=== PATIENT | male | born 1975 | race Caucasian/White ===

== ENCOUNTER → 2019-07-30 10:12 | Outpatient (CLI) | payer MEDICARE, OTHER, SELFPAY | PROVIDERS: PCP Family Medicine; Visit Provider Family Medicine | DX: M81.0 Age-related osteoporosis without current pathological fracture (principal) | CPT/HCPCS: 77080 ==

== ENCOUNTER 2021-04-13 13:18 | Inpatient (IN) | payer MEDICARE, OTHER, MEDICAID, SELFPAY ==
[2021-04-13] VITALS (20 sets, daily range): BP systolic 108–140; BP diastolic 71–88; PULSE 67–90; RESP 12–24; TEMP 36.2–36.7; O2SAT 91–100
[2021-04-13 14:04] LABS: Add Manual Diff / Slide Review NO; Basophils Absolute Auto 0 /uL (0-100); Basophils Percent Auto 0.2 % (0-2); Eosinophils Absolute Auto 0 /uL (0-450); Eosinophils Percent Auto 0.4 % (2-4); Hematocrit 36.5 % (41-53); Hemoglobin 13.1 g/dL (13.5-17.5); Lymphocytes Absolute Auto 1300 /uL (1100-4500); Lymphocytes Percent Auto 18.7 % (25-40); Mean Corpuscular HGB Conc 35.8 % (30-36); Mean Corpuscular Hemoglobin 29.9 PG (26-34); Mean Corpuscular Volume 83.5 fL (80-100); Monocytes Absolute Auto 800 /uL (0-900); Monocytes Percent Auto 12.6 % (3-14); Neutrophils Absolute Auto 4600 /uL (1500-7000); Neutrophils Percent Auto 68.1 % (50-75); Platelet Count 230 X10^3/uL (150-400); Red Blood Cell Count 4.37 X10^6/uL (4.5-5.9); White Blood Cell Count 6.7 X10^3/uL (4.5-11.0)
[2021-04-13 14:11] LABS: HEMOLYSIS < 15 (0-50); Potassium 3.5 mmol/L (3.4-5.1)
[2021-04-13 14:12] LABS: Alanine Aminotransferase 20 IU/L (<50); Albumin 4.4 g/dL (3.5-5.0); Albumin Globulin Ratio 1.5 (1.0-2.8); Alkaline Phosphatase 74 U/L (38-126); Aspartate Aminotransferase 30 IU/L (17-59); BUN Creatinine Ratio 23.4 (6-22); Bilirubin Total 1.2 mg/dL (0.2-1.3); Blood Urea Nitrogen 11 mg/dL (9-20); Calcium 9.2 mg/dL (8.4-10.2); Carbon Dioxide 26 mmol/L (22-32); Chloride 82 mmol/L (98-107); Estimated Glomerular Filt Rate > 60.0 mL/min (>60); Globulin 2.9 g/dL (1.7-4.1); Glucose 101 mg/dL (70-100); Lipase 57 U/L (23-300); Total Protein 7.3 g/dL (6.3-8.2)
[2021-04-13 14:28] LABS: Sodium 116 mmol/L (137-145)
[2021-04-13 14:46] LABS: Bacteria Urine None Seen
[2021-04-13 15:32] LABS: Amorphous Sediment Urine 1+; Culture Indicated Urine Cult Not Indicated; RBC Urine 5-10/HPF (0-5/HPF); WBC Urine 0-1/HPF (0-5/HPF)
--- NOTE | 2021-04-13 15:36 | ED.RECABL ---
HPI - Recheck/Abnormal Lab/Rx General Chief Complaint: Recheck/Abnormal Lab/Rx Stated Complaint: sodium level of 117 this AM Time Seen by Provider: 04/13/21 14:18 Source: patient Mode of arrival: Ambulatory Limitations: no limitations History of Present Illness HPI narrative: This is a 46-year-old male who comes emergency department with some dry heaves and nausea and vomiting starting Saturday for 3 days. Patient was noted to have decreased appetite. He was able to eat today. Patient has not had any pain but he has some developmental delay and does not typically perceive or express pain. Patient has had normal bowel movements, no black or bloody stools, no diarrhea. He has not had any shortness of breath he has not seemed to be having any chest pain or pressure. Patient has had not any decrease for changes in urine output, no dysuria, urgency or frequency. Patient himself indicates that he does feel a little bit different but his mother states he has been acting normally and moving normally. He does have a history of seizure disorder his last seizure was 25 years ago he does follow with Neurology in [place] and last saw Dr. Clay, he takes lamotrigine 200 mg in the morning and has been on this dose for approximately 4-5 years. He takes vitamin-D daily, calcium and multivitamin no other additional medications. He had a deviated septum surgery remotely. No allergies to medications. No tobacco, alcohol or illicit. He lives with his family. Related Data Home Medications Medication Instructions Recorded Confirmed alendronate 70 mg tablet (Fosamax) QWEEK #0 11/07/16 calcium citrate 200 mg BID #0 11/07/16 calcium-vitamin D3 3.125 mcg (125 unit) tablet multivitamin (Multiple Vitamins) QDAY #0 11/07/16 Previous Rx's Medication Instructions Recorded lamotrigine 150 mg tablet 150 tab OR BID #180 tab 11/06/17 (Lamictal) Allergies Allergy/AdvReac Type Severity Reaction Status Date / Time No Known Drug Allergies Allergy Verified 04/13/21 13:35 Review of Systems Review of Systems ROS Unobtainable: All systems reviewed & are unremarkable except as noted in HPI and below Patient History Social History Smoking Status: Never smoker Smoking Status: Never smoker Substance Use Type: does not use Exam Narrative Exam Narrative: GEN: well nourished, well appearing male, alert and oriented, patient appears to be in mild distress. HEENT: Atraumatic, pupils are equal round reactive to light, extraocular movements are intact, nares are clear. Mildly dry mucous membranes. HEART: Regular rate and rhythm without murmur, clicks, rubs. Pulses are equal in upper and lower extremities LUNGS:Lungs clear to auscultation, no wheezes, rales, crackles, chest moves symmetrically ABD:bowel sounds normal, soft, non-tender, no guarding, rebound, rigidity, no masses noted, no hepatosplenomegaly :No CVA tenderness MSCL: Non-tender, full range of motion, 5/5 muscle strength. NEURO:CN 2-12 intact, sensation normal SKIN: Rash or skin changes noted. Initial Vital Signs Initial Vital Signs: Vital Signs Temperature 98.0 F 04/13/21 13:22 Pulse Rate 88 04/13/21 13:22 Respiratory Rate 18 04/13/21 13:22 Blood Pressure 115/71 04/13/21 13:22 Pulse Oximetry 96 04/13/21 13:22 Course Orders Ordered: ED Orders 04/13/21 13:30 EKG-12 Lead Stat 04/13/21 13:45 Complete Blood Count AUTO DIFF Stat Comprehensive Metabolic Panel Stat Lipase Stat Thyroid Stimulating Hormone Stat 04/13/21 14:35 Osmolality Urine Stat Sodium Urine Random Stat Urine Microscopic Stat 04/13/21 15:58 CT kidney ureter bladder (KUB) Stat 04/13/21 16:17 Lamotrigine Lamictal Stat Osmolality, Serum Stat 04/13/21 16:35 COVID19 - ADMIT (BORDER MEASURER swab/PCR) Stat 04/13/21 18:57 Electrolytes Stat Discontinued Medications Sodium Chloride (Normal Saline 0.9%) 1,000 mls @ 500 mls/hr IV BOLUS ONE Stop: 04/13/21 17:57 Last Infusion: 04/13/21 19:12 Dose: 0 mls/hr Documented by: CTR.[email or web address] Admin: 04/13/21 16:25 Dose: 500 mls/hr Documented by: CTR.[email or web address] Consultations Consultation #1: Dr. Pantoja, accepts for admission. Awaiting ICU bed here. Plan of 100 mL of 3% saline is patient's repeat lytes are still below 120. Vital Signs Vital signs: Vital Signs - 8 hr 04/13/21 13:22 04/13/21 15:10 Temperature 98.0 F Pulse Rate 88 81 Respiratory Rate 18 18 Blood Pressure 115/71 115/72 Pulse Oximetry 96 100 MDM - Recheck/Abnormal Lab/Rx Lab Data Result diagrams: 04/13/21 13:45 04/13/21 19:06 Labs: Lab Results 04/13/21 04/13/21 04/13/21 Range/Units 13:45 13:45 13:45 WBC 6.7 (4.5-11.0) X10^3/uL RBC 4.37 L (4.5-5.9) X10^6/uL Hgb 13.1 L (13.5-17.5) g/dL Hct 36.5 L (41-53) % MCV 83.5 (80-100) fL MCH 29.9 (26-34) PG MCHC 35.8 (30-36) % RDW 13.0 (11.6-14.8) % Plt Count 230 (150-400) X10^3/uL Neut % (Auto) 68.1 (50-75) % Lymph % (Auto) 18.7 L (25-40) % [place] % (Auto) 12.6 (3-14) % Eos % (Auto) 0.4 L (2-4) % Baso % (Auto) 0.2 (0-2) % Neut # (Auto) 4600 (3242-1763) /uL Lymph # (Auto) 1300 (2853-1847) /uL [place] # (Auto) 800 (0-900) /uL Eos # (Auto) 0 (0-450) /uL Baso # (Auto) 0 (0-100) /uL Sodium 116 L* (137-145) mmol/L Potassium 3.5 (3.4-5.1) mmol/L Chloride 82 L (98-107) mmol/L Carbon Dioxide 26 (22-32) mmol/L BUN 11 (9-20) mg/dL Creatinine 0.47 L (0.66-1.25) mg/dL Estimated GFR > 60.0 (>60) mL/min BUN/Creatinine Ratio 23.4 H (6-22) Glucose 101 H (70-100) mg/dL Calcium 9.2 (8.4-10.2) mg/dL Total Bilirubin 1.2 (0.2-1.3) mg/dL AST 30 (17-59) IU/L ALT 20 (<50) IU/L Alkaline Phosphatase 74 (38-126) U/L Total Protein 7.3 (6.3-8.2) g/dL Albumin 4.4 (3.5-5.0) g/dL Globulin 2.9 (1.7-4.1) g/dL Albumin/Globulin Ratio 1.5 (1.0-2.8) Lipase 57 (23-300) U/L TSH 1.12 (0.47-4.68) uIU/mL Urine RBC (0-5/HPF) Urine WBC (0-5/HPF) Amorphous Sediment Urine Bacteria (None) Ur Culture Indicated? Ur Random Sodium (30-90) mmol/L SARS-CoV-2 (PCR) (Negative) 04/13/21 04/13/21 04/13/21 Range/Units 14:35 14:35 16:35 WBC (4.5-11.0) X10^3/uL RBC (4.5-5.9) X10^6/uL Hgb (13.5-17.5) g/dL Hct (41-53) % MCV (80-100) fL MCH (26-34) PG MCHC (30-36) % RDW (11.6-14.8) % Plt Count (150-400) X10^3/uL Neut % (Auto) (50-75) % Lymph % (Auto) (25-40) % [place] % (Auto) (3-14) % Eos % (Auto) (2-4) % Baso % (Auto) (0-2) % Neut # (Auto) (0842-5018) /uL Lymph # (Auto) (0310-5372) /uL [place] # (Auto) (0-900) /uL Eos # (Auto) (0-450) /uL Baso # (Auto) (0-100) /uL Sodium (137-145) mmol/L Potassium (3.4-5.1) mmol/L Chloride (98-107) mmol/L Carbon Dioxide (22-32) mmol/L BUN (9-20) mg/dL Creatinine (0.66-1.25) mg/dL Estimated GFR (>60) mL/min BUN/Creatinine Ratio (6-22) Glucose (70-100) mg/dL Calcium (8.4-10.2) mg/dL Total Bilirubin (0.2-1.3) mg/dL AST (17-59) IU/L ALT (<50) IU/L Alkaline Phosphatase (38-126) U/L Total Protein (6.3-8.2) g/dL Albumin (3.5-5.0) g/dL Globulin (1.7-4.1) g/dL Albumin/Globulin Ratio (1.0-2.8) Lipase (23-300) U/L TSH (0.47-4.68) uIU/mL Urine RBC 5-10/hpf H (0-5/HPF) Urine WBC 0-1/hpf (0-5/HPF) Amorphous Sediment 1+ Urine Bacteria None seen (None) Ur Culture Indicated? Cult not indicated Ur Random Sodium 14 L (30-90) mmol/L SARS-CoV-2 (PCR) Negative (Negative) Urine Dip Bedside Urine Glucose Negative Bedside Urine Bilirubin - Negative Bedside Urine Ketone - Negative Urine Specific [place] 1.015 Bedside Urine Occult Blood +++ Bedside Urine pH 7.5 Bedside Urine Protein - Negative Bedside Urine Urobilinogen - Negative Bedside Urine Nitrite - Negative Bedside Urine Leukocytes - Negative Esterase Imaging Data CT scan - abdomen/pelvis: Radiologist's Impression: [address] [id number] Scan ReportSigned Patient: Gilbert Matthews [facility]#: [id number]: 1975Acct:[id number]/Sex: 46 / MDate of Service: 04/13/21Loc: EDAccession Number: [id number] Procedure: CT kidney ureter bladder (KUB) Ordering Provider: Nadira Thompson D.O. PROCEDURE: CT KIDNEY URETER BLADDER (KUB) INDICATIONS: hematuria, vomiting, hyponatremia TECHNIQUE: Axial sections were acquired from the lung bases to the pubic symphysis. Coronal and sagittal reformats were performed. For radiation dose reduction, the following was used: automated exposure control, adjustment of mA and/or kV according to patient size. COMPARISON:None. FINDINGS: Image quality: There are motion artifacts. Lung bases: Unremarkable. Heart: No significant findings. URINARY: Right Kidney: A couple of punctate calcifications in right kidney measuring 1-2 mm. No hydronephrosis. Right Ureter: No ureter stones or hydroureter. Left Kidney: Multiple renal calculi are seen, measuring 1-6 mm. No hydronephrosis. Left Ureter: No ureteral stones. No hydroureter. Bladder: Normal wall thickness. There is a 4 mm stone in the right bladder base. There is a 0.8 cm calcific density in the central prostate, which could be within the prostatic urethra. ABDOMEN: Liver: Unremarkable. Gallbladder: Unremarkable. Biliary ducts: Unremarkable. Pancreas: Unremarkable. Spleen: Unremarkable. Adrenal Glands: Unremarkable. Stomach and Bowel: Stomach, small bowel loops, and colon are unremarkable. Moderate amount of stool in colon. Normal appendix. Peritoneum: No abnormal intraperitoneal fluid. No free air. Ventral Wall: No hernia. Abdominal Nodes: No enlarged retroperitoneal or mesenteric lymph nodes. Vessels: Aorta and inferior vena cava are normal in size. PELVIS: Pelvic Organs: Unremarkable. Pelvic Nodes: Unremarkable. Miscellaneous: No inguinal hernias are seen. Bones: Mild superior endplate depression of T9 and T10, compatible with mild old compression fractures. IMPRESSION: 1. Nephrolithiasis bilaterally. No hydronephrosis. 2. There is a 4 mm stone in the urinary bladder, suspicious for recently passed stone given hematuria. 3. A 0.8 cm calcification within the central prostate. Differential diagnoses include a stone within the prosthetic urethra versus dystrophic calcification of prostate. 4. Mild chronic compression fracture of T9 and T10. Dictated by: Erika Gerard M.D. on 04/13/2021 at 16:23 Approved by: Erika Gerard M.D. on 04/13/2021 at 16:34 ECG Data Attestation: I personally reviewed and interpreted this ECG as follows: Prior ECG tracings: not available for review Interpretation: Sinus rhythm rate of 90 NC 162 QRS of 100 and QTC of 450. No acute ST elevation depression noted. Patient has an RSR pattern. No priors available. MDM Narrative Medical decision making narrative: This is a 46-year-old male who is sent for hyponatremia on outpatient labs. These were drawn as patient had nausea and vomiting for several days earlier this week. He was noted to have some hematuria. Patient has seemed to be in pain according to his mother but he is not typically expressive of pain. He does not have any renal dysfunction appreciated but would go ahead and CT his abdomen for KUB as well as for his recent nausea and vomiting to evaluate for any abdominal changes. Patient's physical exam is reassuring. Patient indicates that he does feel foggy or little bit different but his mother has not appreciated any new mental changes or physical changes beyond those reported in terms of nausea and vomiting. Patient does have a 4 mm stone in the bladder and I suspect patient had a kidney stone which he passed which is likely the cause of his nausea and vomiting continued considering he still has hematuria. There is a mild chronic compression fractures of T9 and T10 as well as some calcification in the central prostate. Critical Care Time Critical Care Time Critical Care Time: Yes Total Critical Care Time: 35 Attestation: The high probability of a clinically significant, sudden or life threatening deterioration of the [] system(s) required my full and direct attention, intervention and personal management. The aggregate critical care time was [] minutes. This time is in addition to time spent performing reported procedures but includes the following: [x] Data Review and interpretation [x] Patient assessment and monitoring of vital signs [x] Documentation [x] Medication orders and management Discharge Plan Departure Patient Disposition: Admitted As Inpatient Clinical Impression: Hyponatremia, Hematuria Admit Date/Time: 04/13/21 19:01 Admit Provider: Anthony Pantoja
--- NOTE | 2021-04-13 15:58 | DI.CT.S_ITS ---
PROCEDURE: CT KIDNEY URETER BLADDER (KUB) INDICATIONS: hematuria, vomiting, hyponatremia TECHNIQUE: Axial sections were acquired from the lung bases to the pubic symphysis. Coronal and sagittal reformats were performed. For radiation dose reduction, the following was used: automated exposure control, adjustment of mA and/or kV according to patient size. COMPARISON:None. FINDINGS: Image quality: There are motion artifacts. Lung bases: Unremarkable. Heart: No significant findings. URINARY: Right Kidney: A couple of punctate calcifications in right kidney measuring 1-2 mm. No hydronephrosis. Right Ureter: No ureter stones or hydroureter. Left Kidney: Multiple renal calculi are seen, measuring 1-6 mm. No hydronephrosis. Left Ureter: No ureteral stones. No hydroureter. Bladder: Normal wall thickness. There is a 4 mm stone in the right bladder base. There is a 0.8 cm calcific density in the central prostate, which could be within the prostatic urethra. ABDOMEN: Liver: Unremarkable. Gallbladder: Unremarkable. Biliary ducts: Unremarkable. Pancreas: Unremarkable. Spleen: Unremarkable. Adrenal Glands: Unremarkable. Stomach and Bowel: Stomach, small bowel loops, and colon are unremarkable. Moderate amount of stool in colon. Normal appendix. Peritoneum: No abnormal intraperitoneal fluid. No free air. Ventral Wall: No hernia. Abdominal Nodes: No enlarged retroperitoneal or mesenteric lymph nodes. Vessels: Aorta and inferior vena cava are normal in size. PELVIS: Pelvic Organs: Unremarkable. Pelvic Nodes: Unremarkable. Miscellaneous: No inguinal hernias are seen. Bones: Mild superior endplate depression of T9 and T10, compatible with mild old compression fractures. IMPRESSION: 1. Nephrolithiasis bilaterally. No hydronephrosis. 2. There is a 4 mm stone in the urinary bladder, suspicious for recently passed stone given hematuria. 3. A 0.8 cm calcification within the central prostate. Differential diagnoses include a stone within the prosthetic urethra versus dystrophic calcification of prostate. 4. Mild chronic compression fracture of T9 and T10. Dictated by: Erika Gerard M.D. on 04/13/2021 at 16:23 Approved by: Erika Gerard M.D. on 04/13/2021 at 16:34
[2021-04-13] MEDS: SODIUM CHLORIDE 0.9% 1,000 ML 500 ML IV (16:25)
[2021-04-13 16:31] LABS: Sodium Urine Random 14 mmol/L (30-90)
[2021-04-13 16:40] LABS: Thyroid Stimulating Hormone 1.12 uIU/mL (0.47-4.68)
[2021-04-13 17:28] LABS: COVID19 - ADMIT (NP swab/PCR) Negative (Negative)
[2021-04-13 19:23] LABS: Carbon Dioxide 24 mmol/L (22-32); Chloride 88 mmol/L (98-107); HEMOLYSIS < 15 (0-50); Potassium 3.6 mmol/L (3.4-5.1)
[2021-04-13 19:24] LABS: Sodium 119 mmol/L (137-145)
[2021-04-13] MEDS: SODIUM CHLORIDE 0.9% 1,000 ML 125 ML IV (23:03)
[2021-04-13] MEDS: HEPARIN 5,000 UNIT/ML VIAL 5000 UNIT SUBCUT (23:04)
[2021-04-13] MEDS: lamoTRIgine 100 MG TABLET 150 MG PO (23:06)
[2021-04-13 23:42] LABS: BUN Creatinine Ratio 18.8 (6-22); Blood Urea Nitrogen 9 mg/dL (9-20); Calcium 8.4 mg/dL (8.4-10.2); Carbon Dioxide 24 mmol/L (22-32); Chloride 87 mmol/L (98-107); Estimated Glomerular Filt Rate > 60.0 mL/min (>60); Glucose 96 mg/dL (70-100); HEMOLYSIS < 15 (0-50); Potassium 3.6 mmol/L (3.4-5.1)
--- NOTE | 2021-04-13 23:43 | PM.HP.1 ---
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 Mother stated that he was gagging and refusing to eat food. On Saturday he did eat some cereal but then repeat views T anything else for the rest of the day. He then started to throw up. She introduce soft foods such as yogurt since putting which did not seem to help. At that point she took him to the [facility] where he receives his care and stated that he did have a kidney stone and at that time sodium was 117. He was directed to present himself to the [facility]. The patient had had a history of low sodium due to being on Tegretol in number of years ago for seizures. She states he has not had any seizures since then and is now currently taking lamotrigine. History is provided mostly by the mother as well he is verbal is unable to provide a reliable history due to his developmental delay. His mom states that he does not report any pain. He does have a significant drooling problem which has been lifelong. She denies that the patient has been febrile, she also states that he is continent of urine and stool though he did apparently have an it urinary incontinence episode in the ED however that might have also been caused by the fluids he was getting. There was a complaint of hematuria however this was not mentioned to me during my interview with the patient. In the ED, the patient's vitals were 98.0, blood pressure 117/75, heart rate 74, respiratory rate 17, oxygen saturation 96% on room air any weighs 68.[address] of the chest abdomen and pelvis only indicated a 4 mm stone in the urinary bladder which could explain the hematuria. WBC is unremarkable, admission chemistries included a sodium of 116 now improved to 119 over several hours, potassium 3.5, chloride 82, bicarb 26, BUN 11, creatinine 0.47, glucose 101, TSH within normal limits. Repeat sodium was done and had dropped to 117, so the patient will require 3% hypertonic saline and admission to the ICU. Patient History Medical History Agenesis of corpus callosum Surgical History History of deviated nasal septum Family & Social History Family history unavailable: No (Mother 71, Father 68 and sister 43 all A&W) Safety & Behavioral: Feels Safe in Current Yes Environment Been Physically Hurt or No Threatened By a Person Tobacco & Substance use: Smoking Status Never smoker Substance Use Type does not use Meds Home Medications and Allergies Home Medications Medication Instructions Recorded Confirmed Type alendronate 70 mg tablet (Fosamax) QWEEK #0 11/07/16 History calcium citrate 200 mg BID #0 11/07/16 History calcium-vitamin D3 3.125 mcg (125 unit) tablet multivitamin (Multiple Vitamins) QDAY #0 11/07/16 History lamotrigine 150 mg tablet 150 tab OR BID #180 tab 11/06/17 Rx (Lamictal) Allergies Allergy/AdvReac Type Severity Reaction Status Date / Time No Known Drug Allergies Allergy Verified 04/13/21 13:35 Review of Systems Review of Systems ROS: Yes All systems reviewed with the patient and are negative except as otherwise documented Exam Vital Signs (past 8 hours): - 04/13/21 16:32 04/13/21 17:00 04/13/21 17:30 Pulse Rate 82 77 Respiratory Rate 15 15 21 Blood Pressure 140/88 Pulse Oximetry 100 97 04/13/21 18:00 04/13/21 18:30 04/13/21 19:00 Pulse Rate 74 78 79 Respiratory Rate 18 23 19 Blood Pressure Pulse Oximetry 100 100 100 04/13/21 19:30 04/13/21 20:06 04/13/21 20:30 Pulse Rate 80 87 76 Respiratory Rate 18 15 Blood Pressure Pulse Oximetry 100 91 97 04/13/21 21:00 04/13/21 21:18 04/13/21 21:30 Pulse Rate 78 74 Respiratory Rate 17 17 Blood Pressure 117/74 117/75 Pulse Oximetry 97 96 Oxygen Delivery Method Room Air Narrative Exam Narrative: Gen: Alert, oriented, thin 46 y.o. male, happy HEENT: normocephalic, atraumatic, conjunctiva clear, sclera non-icteric, oral mucosa pink and moist, drooling Neck: supple, full ROM, no JVD, trachea is midline Resp: Lungs CTA, non-labored breathing CV: RRR, no murmur or rubs Abd: soft, non-tender, normoactive BTs Skin: no lesions or rashes, dry and intact Neuro: Delayed, alert and oriented X 2 child like. Oral tardive dyskinesia w/tongue thrusting Extremities: moves all 4 extremities, is ambulatory, negative Malorie?s sign Psyche: happy affect Objective Labs Result Diagrams: 04/13/21 13:45 04/13/21 19:06 Labs: Laboratory Results - last 24 hr 04/13/21 04/13/21 04/13/21 13:45 13:45 13:45 WBC 6.7 RBC 4.37 L Hgb 13.1 L Hct 36.5 L MCV 83.5 MCH 29.9 MCHC 35.8 RDW 13.0 Plt Count 230 Neut % (Auto) 68.1 Lymph % (Auto) 18.7 L [place] % (Auto) 12.6 Eos % (Auto) 0.4 L Baso % (Auto) 0.2 Neut # (Auto) 4600 Lymph # (Auto) 1300 [place] # (Auto) 800 Eos # (Auto) 0 Baso # (Auto) 0 Sodium 116 L* Potassium 3.5 Chloride 82 L Carbon Dioxide 26 BUN 11 Creatinine 0.47 L Estimated GFR > 60.0 BUN/Creatinine Ratio 23.4 H Glucose 101 H Calcium 9.2 Total Bilirubin 1.2 AST 30 ALT 20 Alkaline Phosphatase 74 Total Protein 7.3 Albumin 4.4 Globulin 2.9 Albumin/Globulin Ratio 1.5 Lipase 57 TSH 1.12 Urine RBC Urine WBC Amorphous Sediment Urine Bacteria Ur Culture Indicated? Ur Random Sodium SARS-CoV-2 (PCR) 04/13/21 04/13/21 04/13/21 14:35 14:35 16:35 WBC RBC Hgb Hct MCV MCH MCHC RDW Plt Count Neut % (Auto) Lymph % (Auto) [place] % (Auto) Eos % (Auto) Baso % (Auto) Neut # (Auto) Lymph # (Auto) [place] # (Auto) Eos # (Auto) Baso # (Auto) Sodium Potassium Chloride Carbon Dioxide BUN Creatinine Estimated GFR BUN/Creatinine Ratio Glucose Calcium Total Bilirubin AST ALT Alkaline Phosphatase Total Protein Albumin Globulin Albumin/Globulin Ratio Lipase TSH Urine RBC 5-10/hpf H Urine WBC 0-1/hpf Amorphous Sediment 1+ Urine Bacteria None seen Ur Culture Indicated? Cult not indicated Ur Random Sodium 14 L SARS-CoV-2 (PCR) Negative 04/13/21 19:06 WBC RBC Hgb Hct MCV MCH MCHC RDW Plt Count Neut % (Auto) Lymph % (Auto) [place] % (Auto) Eos % (Auto) Baso % (Auto) Neut # (Auto) Lymph # (Auto) [place] # (Auto) Eos # (Auto) Baso # (Auto) Sodium 119 L* Potassium 3.6 Chloride 88 L Carbon Dioxide 24 BUN Creatinine Estimated GFR BUN/Creatinine Ratio Glucose Calcium Total Bilirubin AST ALT Alkaline Phosphatase Total Protein Albumin Globulin Albumin/Globulin Ratio Lipase TSH Urine RBC Urine WBC Amorphous Sediment Urine Bacteria Ur Culture Indicated? Ur Random Sodium SARS-CoV-2 (PCR) Assessment & Plan Assessment & Plan narrative: Gilbert Matthews will be admitted to the ICU as his hyponatremia requires hypertonic saline adminstration. 1. Acute severe hypernatremia, present on admission He completed a weight-based bolus of normal saline in the ED, then was started NS at 125 ml/hour He was intially responsive to NS administration and improved from a sodium of 116 to 119. 2 hours later, his sodium dropped to 117 He will receive hypertonic 3% saline at 20 ml/hour and bmps will be checked hourly Goal to raise sodium no greater than 122-130 in a 24 hour period to avoid osmotic demyelination syndrome Fluid restriction of 1200 ml/day, strict Is and Os 2. Seizure disorder, chronic appearing to be well controlled Continue home dose of lamotragine 150 mg po bid VTE prophylaxis: Wells risk score: 0 heparin 5000 units subQ bid Consults: none Patient is admitted under inpatient status in the ICU with expected length of stay greater than 2 midnights due to severity of presenting symptoms, risk of adverse event, and complexity of treatment plan. FEN: 3% hypertonic saline, regular diet, BMP q 2 hours and magnesium in the am. Dispo: eventual discharge to home Code Status: Full code as discussed with patient's mother Annetta who is his guardian and POA COVID-19 COVID-19 status: Negative Result date/Date tested (Pos, Neg/Pending): 04/14/21 Scores Wells' Criteria for PE Clinical signs and symptoms of DVT: No PE is #1 Dx or equally likely: No Heart rate > 100: No Immobilization at least 3 days or surg in previous 4 weeks: No History of PE or DVT: No Hemoptysis: No Malignancy w/Treatment within 6 months or palliative: No Wells' PE Score total: 0 Quality VTE Deep Vein Thrombosis/Pulmonary Embolism Present on Admission: No MIPS - Admit I confirm the patient?s Advance Care Plan is present, Code status is documented, Surrogate decision maker is in patient?s record [If Yes, STOP here]: Yes
[2021-04-13 23:53] LABS: Sodium 117 mmol/L (137-145)
[2021-04-14] VITALS (24 sets, daily range): BP systolic 97–126; BP diastolic 59–83; PULSE 67–97; RESP 11–63; TEMP 36.5–37.2; O2SAT 95–100; BMI 20.5
[2021-04-14] MEDS: SODIUM CHLORIDE 3 % 500 ML 20 ML IV (00:44)
[2021-04-14 01:04] LABS: BUN Creatinine Ratio 17.4 (6-22); Blood Urea Nitrogen 8 mg/dL (9-20); Calcium 8.4 mg/dL (8.4-10.2); Carbon Dioxide 24 mmol/L (22-32); Chloride 85 mmol/L (98-107); Estimated Glomerular Filt Rate > 60.0 mL/min (>60); Glucose 95 mg/dL (70-100); HEMOLYSIS < 15 (0-50); Potassium 3.5 mmol/L (3.4-5.1)
[2021-04-14 01:09] LABS: Sodium 117 mmol/L (137-145)
--- NOTE | 2021-04-14 01:22 | PC.ADMIT ---
[facility] Admission Note: The patient,Gilbert Matthews,46 y/o, was given written information regarding hospital policies, unit procedures and contact persons. Patient's smoking status: Never smoker. Vital Signs - 8 hr 04/13/21 17:30 04/13/21 18:00 04/13/21 18:30 Pulse Rate 77 74 78 Respiratory Rate 21 18 23 Blood Pressure Pulse Oximetry 97 100 100 04/13/21 19:00 04/13/21 19:30 04/13/21 20:06 Pulse Rate 79 80 87 Respiratory Rate 19 18 Blood Pressure Pulse Oximetry 100 100 91 04/13/21 20:30 04/13/21 21:00 04/13/21 21:18 Pulse Rate 76 78 Respiratory Rate 15 17 Blood Pressure 117/74 Pulse Oximetry 97 97 04/13/21 21:30 04/13/21 22:03 04/13/21 22:30 Pulse Rate 74 84 74 Respiratory Rate 17 22 15 Blood Pressure 117/75 Pulse Oximetry 96 98 98 04/13/21 23:00 04/13/21 23:06 04/13/21 23:30 Pulse Rate 67 90 77 Respiratory Rate 12 12 24 Blood Pressure 108/75 130/77 Pulse Oximetry 98 97 100 Patient up from Ed via stretcher. Was able to get off of the stretcher and ambulate to bathroom and then back to bed. Mother in room was able to help with admission questions. Patient is developmentally delayed, but A&O, calm and cooperative.
[2021-04-14 01:54] LABS: BUN Creatinine Ratio 18.2 (6-22); Blood Urea Nitrogen 8 mg/dL (9-20); Calcium 8.2 mg/dL (8.4-10.2); Carbon Dioxide 24 mmol/L (22-32); Chloride 85 mmol/L (98-107); Estimated Glomerular Filt Rate > 60.0 mL/min (>60); Glucose 93 mg/dL (70-100); HEMOLYSIS 39 (0-50); Potassium 3.5 mmol/L (3.4-5.1)
[2021-04-14 01:56] LABS: Sodium 116 mmol/L (137-145)
[2021-04-14 02:48] LABS: BUN Creatinine Ratio 15.2 (6-22); Blood Urea Nitrogen 7 mg/dL (9-20); Calcium 8.4 mg/dL (8.4-10.2); Carbon Dioxide 25 mmol/L (22-32); Chloride 86 mmol/L (98-107); Estimated Glomerular Filt Rate > 60.0 mL/min (>60); Glucose 95 mg/dL (70-100); HEMOLYSIS < 15 (0-50); Potassium 3.6 mmol/L (3.4-5.1)
[2021-04-14 02:54] LABS: Sodium 117 mmol/L (137-145)
[2021-04-14 03:42] LABS: BUN Creatinine Ratio 15.2 (6-22); Blood Urea Nitrogen 7 mg/dL (9-20); Calcium 8.4 mg/dL (8.4-10.2); Carbon Dioxide 25 mmol/L (22-32); Chloride 86 mmol/L (98-107); Estimated Glomerular Filt Rate > 60.0 mL/min (>60); Glucose 93 mg/dL (70-100); HEMOLYSIS < 15 (0-50); Potassium 3.6 mmol/L (3.4-5.1)
[2021-04-14 03:44] LABS: Sodium 118 mmol/L (137-145)
[2021-04-14 05:30] LABS: Add Manual Diff / Slide Review NO; Basophils Absolute Auto 100 /uL (0-100); Basophils Percent Auto 1.5 % (0-2); Eosinophils Absolute Auto 100 /uL (0-450); Eosinophils Percent Auto 0.9 % (2-4); Hematocrit 35.4 % (41-53); Hemoglobin 12.7 g/dL (13.5-17.5); Lymphocytes Absolute Auto 1300 /uL (1100-4500); Lymphocytes Percent Auto 19.3 % (25-40); Mean Corpuscular HGB Conc 35.8 % (30-36); Mean Corpuscular Hemoglobin 29.6 PG (26-34); Mean Corpuscular Volume 82.7 fL (80-100); Monocytes Absolute Auto 600 /uL (0-900); Monocytes Percent Auto 9.5 % (3-14); Neutrophils Absolute Auto 4600 /uL (1500-7000); Neutrophils Percent Auto 68.8 % (50-75); Platelet Count 217 X10^3/uL (150-400); Red Blood Cell Count 4.28 X10^6/uL (4.5-5.9); White Blood Cell Count 6.6 X10^3/uL (4.5-11.0)
[2021-04-14 05:36] LABS: BUN Creatinine Ratio 16.3 (6-22); Blood Urea Nitrogen 7 mg/dL (9-20); Calcium 8.3 mg/dL (8.4-10.2); Carbon Dioxide 23 mmol/L (22-32); Chloride 87 mmol/L (98-107); Estimated Glomerular Filt Rate > 60.0 mL/min (>60); Glucose 93 mg/dL (70-100); HEMOLYSIS < 15 (0-50); Potassium 3.4 mmol/L (3.4-5.1)
[2021-04-14 05:37] LABS: Magnesium 1.8 mg/dL (1.6-2.3)
[2021-04-14 05:47] LABS: Sodium 118 mmol/L (137-145)
[2021-04-14 08:37] LABS: BUN Creatinine Ratio 21.2 (6-22); Blood Urea Nitrogen 7 mg/dL (9-20); Calcium 8.4 mg/dL (8.4-10.2); Carbon Dioxide 21 mmol/L (22-32); Chloride 89 mmol/L (98-107); Estimated Glomerular Filt Rate > 60.0 mL/min (>60); Glucose 93 mg/dL (70-100); HEMOLYSIS < 15 (0-50); Potassium 3.3 mmol/L (3.4-5.1)
[2021-04-14 08:38] LABS: Sodium 117 mmol/L (137-145)
[2021-04-14] MEDS: lamoTRIgine 100 MG TABLET 150 MG PO (11:04)
[2021-04-14] MEDS: HEPARIN 5,000 UNIT/ML VIAL 5000 UNIT SUBCUT ×2 (11:04→21:25)
[2021-04-14 11:39] LABS: BUN Creatinine Ratio 17.8 (6-22); Blood Urea Nitrogen 8 mg/dL (9-20); Calcium 8.6 mg/dL (8.4-10.2); Carbon Dioxide 24 mmol/L (22-32); Chloride 86 mmol/L (98-107); Estimated Glomerular Filt Rate > 60.0 mL/min (>60); Glucose 92 mg/dL (70-100); HEMOLYSIS < 15 (0-50); Potassium 3.7 mmol/L (3.4-5.1)
[2021-04-14 11:40] LABS: Sodium 117 mmol/L (137-145)
--- NOTE | 2021-04-14 14:34 | CM.DANOTE ---
Discharge Planning/Care Management DCP: assessment: case received, EMR reviewed and met with pt and his mother Annetta. Introduced self and role. Pt is a 46 year old male with chronic medical co-morbidities and admitting with severe hyponatremia. Documentation states pt is developementally delay. Pt and his mother confirm that he is able to mobilize without a FWW (pt is quite firm on this) and does manage with supportive and supervision from his parents. Annetta confirms that his d/c plan from hospital will be for home. Payer: Medicare and [employer]. Admission status: INPT: confirmed by UR RN Will follow prn CM Discharge Assessment Start: 04/14/21 14:26 Freq: Status: Active Protocol: Document 04/14/21 14:27 ITV (Rec: 04/14/21 14:34 ITV [id number]) Discharge Planning Assessment Advance Directives? No History Provided By Patient,Family Member,Medical Record Has Patient been admitted in last 30 No days? Prior Living Arrangements House Household Members family Comment pt is developmentally delayed . lives with his mother and father. Discharge Plan Home
[2021-04-14 15:16] LABS: Osmolality, Serum 242 mOsmol/kg (275-295)
[2021-04-14 15:16] LABS: Osmolality Urine 174 mOsmol/kg (.)
[2021-04-14] MEDS: SODIUM CHLORIDE 3 % 500 ML 40 ML IV (16:15)
[2021-04-14 17:33] LABS: Blood Urea Nitrogen 8 mg/dL (9-20); Calcium 8.1 mg/dL (8.4-10.2); Carbon Dioxide 23 mmol/L (22-32); Chloride 89 mmol/L (98-107); Estimated Glomerular Filt Rate > 60.0 mL/min (>60); Glucose 91 mg/dL (70-100); HEMOLYSIS < 15 (0-50); Potassium 3.5 mmol/L (3.4-5.1)
[2021-04-14 17:37] LABS: Sodium 119 mmol/L (137-145)
[2021-04-14 20:12] LABS: BUN Creatinine Ratio 16.3 (6-22); Blood Urea Nitrogen 8 mg/dL (9-20); Calcium 8.3 mg/dL (8.4-10.2); Carbon Dioxide 25 mmol/L (22-32); Chloride 88 mmol/L (98-107); Estimated Glomerular Filt Rate > 60.0 mL/min (>60); Glucose 101 mg/dL (70-100); HEMOLYSIS < 15 (0-50); Potassium 3.2 mmol/L (3.4-5.1)
[2021-04-14 20:18] LABS: Sodium 119 mmol/L (137-145)
[2021-04-14] MEDS: lamoTRIgine 100 MG TABLET 200 MG PO (21:25)
[2021-04-14] MEDS: SODIUM CHLORIDE 0.9% FLUSH 10 ML IV (21:26)
--- NOTE | 2021-04-14 21:48 | P.PN_ITS ---
Subjective Subjective Date Patient Seen: 04/14/21 Time Patient Seen: 08:00 Interval history: Today he has no complaints. He feels well. He has no pain, dizziness. Exam Vital Signs (past 8 hours): - 04/14/21 15:00 04/14/21 16:15 04/14/21 20:55 Temperature 97.8 F 98.2 F Pulse Rate 97 H 80 Respiratory Rate 17 17 Blood Pressure 120/82 121/73 Pulse Oximetry 97 98 98 Oxygen Delivery Method Room Air Oxygen Flow Rate 0 Narrative Exam Narrative: Gen: no acute distress HEENT: moist mucous membranes Resp:clear bilaterally CV: regular rate and rhythm, no murmur or rubs Abd: soft, non-tender,normal bowel sounds Skin: no rashes Neuro: Delayed, alert and oriented X2. Psyche: pleasant Objective Labs Result Diagrams: 04/14/21 05:11 04/14/21 19:55 Labs: Laboratory Results - last 24 hr 04/13/21 04/13/21 04/13/21 14:35 16:17 22:25 WBC RBC Hgb Hct MCV MCH MCHC RDW Plt Count Neut % (Auto) Lymph % (Auto) [place] % (Auto) Eos % (Auto) Baso % (Auto) Neut # (Auto) Lymph # (Auto) [place] # (Auto) Eos # (Auto) Baso # (Auto) Sodium 117 L* Potassium 3.6 Chloride 87 L Carbon Dioxide 24 BUN 9 Creatinine 0.48 L Estimated GFR > 60.0 BUN/Creatinine Ratio 18.8 Glucose 96 Serum Osmolality 242 L Calcium 8.4 Magnesium Urine Osmolality 174 04/14/21 04/14/21 04/14/21 00:35 01:35 02:33 WBC RBC Hgb Hct MCV MCH MCHC RDW Plt Count Neut % (Auto) Lymph % (Auto) [place] % (Auto) Eos % (Auto) Baso % (Auto) Neut # (Auto) Lymph # (Auto) [place] # (Auto) Eos # (Auto) Baso # (Auto) Sodium 117 L* 116 L* 117 L* Potassium 3.5 3.5 3.6 Chloride 85 L 85 L 86 L Carbon Dioxide 24 24 25 BUN 8 L 8 L 7 L Creatinine 0.46 L 0.44 L 0.46 L Estimated GFR > 60.0 > 60.0 > 60.0 BUN/Creatinine Ratio 17.4 18.2 15.2 Glucose 95 93 95 Serum Osmolality Calcium 8.4 8.2 L 8.4 Magnesium Urine Osmolality 04/14/21 04/14/21 04/14/21 03:25 05:11 05:11 WBC 6.6 RBC 4.28 L Hgb 12.7 L Hct 35.4 L MCV 82.7 MCH 29.6 MCHC 35.8 RDW 13.0 Plt Count 217 Neut % (Auto) 68.8 Lymph % (Auto) 19.3 L [place] % (Auto) 9.5 Eos % (Auto) 0.9 L Baso % (Auto) 1.5 Neut # (Auto) 4600 Lymph # (Auto) 1300 [place] # (Auto) 600 Eos # (Auto) 100 Baso # (Auto) 100 Sodium 118 L* Potassium 3.6 Chloride 86 L Carbon Dioxide 25 BUN 7 L Creatinine 0.46 L Estimated GFR > 60.0 BUN/Creatinine Ratio 15.2 Glucose 93 Serum Osmolality Calcium 8.4 Magnesium 1.8 Urine Osmolality 04/14/21 04/14/21 04/14/21 05:11 07:51 11:11 WBC RBC Hgb Hct MCV MCH MCHC RDW Plt Count Neut % (Auto) Lymph % (Auto) [place] % (Auto) Eos % (Auto) Baso % (Auto) Neut # (Auto) Lymph # (Auto) [place] # (Auto) Eos # (Auto) Baso # (Auto) Sodium 118 L* 117 L* 117 L* Potassium 3.4 3.3 L 3.7 Chloride 87 L 89 L 86 L Carbon Dioxide 23 21 L 24 BUN 7 L 7 L 8 L Creatinine 0.43 L 0.33 L 0.45 L Estimated GFR > 60.0 > 60.0 > 60.0 BUN/Creatinine Ratio 16.3 21.2 17.8 Glucose 93 93 92 Serum Osmolality Calcium 8.3 L 8.4 8.6 Magnesium Urine Osmolality 04/14/21 04/14/21 16:48 19:55 WBC RBC Hgb Hct MCV MCH MCHC RDW Plt Count Neut % (Auto) Lymph % (Auto) [place] % (Auto) Eos % (Auto) Baso % (Auto) Neut # (Auto) Lymph # (Auto) [place] # (Auto) Eos # (Auto) Baso # (Auto) Sodium 119 L* 119 L* Potassium 3.5 3.2 L Chloride 89 L 88 L Carbon Dioxide 23 25 BUN 8 L 8 L Creatinine 0.40 L 0.49 L Estimated GFR > 60.0 > 60.0 BUN/Creatinine Ratio 20.0 16.3 Glucose 91 101 H Serum Osmolality Calcium 8.1 L 8.3 L Magnesium Urine Osmolality [facility] Medical History Agenesis of corpus callosum Surgical History History of deviated nasal septum Social History household members: family Smoking Status: Never smoker alcohol intake: never Assessment & Plan Assessment & Plan narrative: Mr. Matthews is a 46M with developmental delay and seizure disorder who presents with severe hyponatremia 1. Acute severe hypernatremia, present on admission -with story of vomiting and low urine sodium point to hypovolemic picture -normal low creatinine rasise possibility of SIADH, though this may be low to due to little muscle mass -in ED he was bolused IVF, then was started NS at 125 ml/hour -he was intially responsive to NS administration and improved from a sodium of 116 to 119. 2 hours later, his sodium dropped to 117 -switched to hypertonic saline until sodium greater than 120, correction has gone slowly on 20cc/hr overnight, increase to 40cc/hr -avoid overcorrecting, check Na q3 hours -fluid restriction of 1200 ml/day, strict Is and Os 2. Seizure disorder, chronic appearing to be well controlled -continue home dose of lamotragine 150 mg po bid DVT ppx: heparin sc Code Status: Full code as discussed with patient's mother Annetta who is his guardian and POA Quality VTE Deep Vein Thrombosis/Pulmonary Embolism Present on Admission: No
[2021-04-14 23:10] LABS: BUN Creatinine Ratio 19.5 (6-22); Blood Urea Nitrogen 8 mg/dL (9-20); Calcium 7.7 mg/dL (8.4-10.2); Carbon Dioxide 23 mmol/L (22-32); Chloride 100 mmol/L (98-107); Estimated Glomerular Filt Rate > 60.0 mL/min (>60); Glucose 88 mg/dL (70-100); HEMOLYSIS < 15 (0-50); Potassium 3.2 mmol/L (3.4-5.1); Sodium 127 mmol/L (137-145)
[2021-04-14] MEDS: KCL 40 MEQ IN NS 1,000 ML 125 MEQ IV (23:48)
[2021-04-14] MEDS: POTASSIUM CHLORIDE 20 MEQ TAB 40 MEQ PO (23:48)
[2021-04-15] VITALS (7 sets, daily range): BP systolic 110–131; BP diastolic 60–81; PULSE 71–78; RESP 16–24; TEMP 36.2–37.1; O2SAT 97–100
[2021-04-15] MEDS: DEXTROSE 5% WATER 1,000 ML 45 ML IV (02:13)
[2021-04-15] MEDS: POTASSIUM CHLORIDE IN WATER 10 MEQ/100 ML PIGGYBACK 100 MEQ IV ×2 (02:14→03:30)
[2021-04-15 03:15] LABS: BUN Creatinine Ratio 17.5 (6-22); Blood Urea Nitrogen 7 mg/dL (9-20); Calcium 8.1 mg/dL (8.4-10.2); Carbon Dioxide 22 mmol/L (22-32); Chloride 90 mmol/L (98-107); Estimated Glomerular Filt Rate > 60.0 mL/min (>60); Glucose 88 mg/dL (70-100); HEMOLYSIS < 15 (0-50); Potassium 3.8 mmol/L (3.4-5.1)
[2021-04-15 03:18] LABS: Sodium 118 mmol/L (137-145)
[2021-04-15] MEDS: SODIUM CHLORIDE 3 % 500 ML 30 ML IV (04:04)
[2021-04-15 05:08] LABS: Add Manual Diff / Slide Review NO; Basophils Absolute Auto 0 /uL (0-100); Basophils Percent Auto 0.3 % (0-2); Eosinophils Absolute Auto 100 /uL (0-450); Eosinophils Percent Auto 1.3 % (2-4); Hemoglobin 12.3 g/dL (13.5-17.5); Lymphocytes Absolute Auto 1600 /uL (1100-4500); Lymphocytes Percent Auto 27.8 % (25-40); Mean Corpuscular HGB Conc 35.2 % (30-36); Mean Corpuscular Hemoglobin 29.5 PG (26-34); Mean Corpuscular Volume 83.7 fL (80-100); Monocytes Absolute Auto 600 /uL (0-900); Monocytes Percent Auto 9.7 % (3-14); Neutrophils Absolute Auto 3600 /uL (1500-7000); Neutrophils Percent Auto 60.9 % (50-75); Platelet Count 202 X10^3/uL (150-400); Red Blood Cell Count 4.18 X10^6/uL (4.5-5.9); White Blood Cell Count 5.9 X10^3/uL (4.5-11.0)
[2021-04-15 05:12] LABS: BUN Creatinine Ratio 16.2 (6-22); Blood Urea Nitrogen 6 mg/dL (9-20); Calcium 8.3 mg/dL (8.4-10.2); Carbon Dioxide 23 mmol/L (22-32); Chloride 90 mmol/L (98-107); Estimated Glomerular Filt Rate > 60.0 mL/min (>60); Glucose 85 mg/dL (70-100); HEMOLYSIS < 15 (0-50); Magnesium 1.8 mg/dL (1.6-2.3); Potassium 4.1 mmol/L (3.4-5.1)
[2021-04-15 05:17] LABS: Sodium 117 mmol/L (137-145)
[2021-04-15] MEDS: HEPARIN 5,000 UNIT/ML VIAL 5000 UNIT SUBCUT ×2 (09:10→20:24)
[2021-04-15] MEDS: lamoTRIgine 100 MG TABLET 200 MG PO ×2 (09:11→20:25)
[2021-04-15 09:30] LABS: Blood Urea Nitrogen 6 mg/dL (9-20); Calcium 8.5 mg/dL (8.4-10.2); Carbon Dioxide 23 mmol/L (22-32); Chloride 90 mmol/L (98-107); Estimated Glomerular Filt Rate > 60.0 mL/min (>60); Glucose 87 mg/dL (70-100); HEMOLYSIS < 15 (0-50); Potassium 3.8 mmol/L (3.4-5.1)
[2021-04-15 09:42] LABS: Sodium 119 mmol/L (137-145)
--- NOTE | 2021-04-15 10:45 | PC.NURSE ---
1015 - MD aware of sodium 119, wants to recheck BMP again at 1500, orders placed
[2021-04-15 14:46] LABS: BUN Creatinine Ratio 14.6 (6-22); Blood Urea Nitrogen 7 mg/dL (9-20); Calcium 8.4 mg/dL (8.4-10.2); Carbon Dioxide 25 mmol/L (22-32); Chloride 89 mmol/L (98-107); Estimated Glomerular Filt Rate > 60.0 mL/min (>60); Glucose 133 mg/dL (70-100); HEMOLYSIS < 15 (0-50); Potassium 3.5 mmol/L (3.4-5.1)
[2021-04-15 15:02] LABS: Sodium 119 mmol/L (137-145)
[2021-04-15] MEDS: LACTATED RINGERS 1,000 ML 125 ML IV (15:56)
[2021-04-15] MEDS: SODIUM CHLORIDE 1,000 MG TABLET 1000 MG PO (15:56)
--- NOTE | 2021-04-15 16:42 | PM.PN.1 ---
Subjective Subjective Interval history: Patient is a 46-year-old male who was admitted to the hospital for nausea and vomiting and severe hyponatremia. He has had no further nausea and vomiting. According to his mother the patient has a history of hyponatremia. He was switch from carbamazepine to Lamictal because of low sodium. At that time several years ago his sodium was 125. While he sees Neurology regularly it is unclear what his baseline sodium is. Patient is asymptomatic at this time. He is sitting laughing talking without any distress. Exam Vital Signs (past 8 hours): - 04/15/21 11:21 Temperature 97.8 F Pulse Rate 78 Respiratory Rate 20 Blood Pressure 110/60 Pulse Oximetry 98 Oxygen Delivery Method Room Air Oxygen Flow Rate 0 Narrative Exam Narrative: Pleasant gentleman sitting in a chair watching television in no obvious distress Resp Other: Lungs clear to auscultation Cardio Other: Cardiac exam regular rate and rhythm normal S1-S2 no murmurs rubs or gallops. GI Other: Abdomen soft scaphoid nontender without hepatosplenomegaly Extrem Other: Lower extremities no edema Objective Labs Result Diagrams: 04/15/21 04:55 04/15/21 14:25 Labs: Laboratory Results - last 24 hr 04/14/21 04/14/21 04/14/21 16:48 19:55 22:56 WBC RBC Hgb Hct MCV MCH MCHC RDW Plt Count Neut % (Auto) Lymph % (Auto) [place] % (Auto) Eos % (Auto) Baso % (Auto) Neut # (Auto) Lymph # (Auto) [place] # (Auto) Eos # (Auto) Baso # (Auto) Sodium 119 L* 119 L* 127 L Potassium 3.5 3.2 L 3.2 L Chloride 89 L 88 L 100 Carbon Dioxide 23 25 23 BUN 8 L 8 L 8 L Creatinine 0.40 L 0.49 L 0.41 L Estimated GFR > 60.0 > 60.0 > 60.0 BUN/Creatinine Ratio 20.0 16.3 19.5 Glucose 91 101 H 88 Calcium 8.1 L 8.3 L 7.7 L Magnesium 04/15/21 04/15/21 04/15/21 02:55 04:55 04:55 WBC 5.9 RBC 4.18 L Hgb 12.3 L Hct 35.0 L MCV 83.7 MCH 29.5 MCHC 35.2 RDW 13.0 Plt Count 202 Neut % (Auto) 60.9 Lymph % (Auto) 27.8 [place] % (Auto) 9.7 Eos % (Auto) 1.3 L Baso % (Auto) 0.3 Neut # (Auto) 3600 Lymph # (Auto) 1600 [place] # (Auto) 600 Eos # (Auto) 100 Baso # (Auto) 0 Sodium 118 L* 117 L* Potassium 3.8 4.1 Chloride 90 L 90 L Carbon Dioxide 22 23 BUN 7 L 6 L Creatinine 0.40 L 0.37 L Estimated GFR > 60.0 > 60.0 BUN/Creatinine Ratio 17.5 16.2 Glucose 88 85 Calcium 8.1 L 8.3 L Magnesium 04/15/21 04/15/21 04/15/21 04:55 09:07 14:25 WBC RBC Hgb Hct MCV MCH MCHC RDW Plt Count Neut % (Auto) Lymph % (Auto) [place] % (Auto) Eos % (Auto) Baso % (Auto) Neut # (Auto) Lymph # (Auto) [place] # (Auto) Eos # (Auto) Baso # (Auto) Sodium 119 L* 119 L* Potassium 3.8 3.5 Chloride 90 L 89 L Carbon Dioxide 23 25 BUN 6 L 7 L Creatinine 0.40 L 0.48 L Estimated GFR > 60.0 > 60.0 BUN/Creatinine Ratio 15.0 14.6 Glucose 87 133 H Calcium 8.5 8.4 Magnesium 1.8 [facility] Medical History Agenesis of corpus callosum Surgical History History of deviated nasal septum Social History household members: family Smoking Status: Never smoker alcohol intake: never Assessment & Plan Assessment & Plan narrative: Acute severe hypernatremia, present on admission -with story of vomiting and low urine sodium point to hypovolemic picture -normal low creatinine rasise possibility of SIADH, though this may be low to due to little muscle mass -in ED he was bolused IVF, then was started NS at 125 ml/hour -he was intially responsive to NS administration and improved from a sodium of 116 to 119. 2 hours later, his sodium dropped to 117 -switched to hypertonic saline until sodium greater than 120, correction has gone slowly on 20cc/hr overnight, increase to 40cc/hr -avoid overcorrecting, check Na q3 hours -fluid restriction of 1200 ml/day, strict Is and Os -suspect the patient has chronic hyponatremia, mom reports excessive drinking of water at home as they were informed to ? Stay hydrated -will continue lactated Ringer's -will start salt tab 1000 mg daily -will check TSH, cortisol, Cortrosyn stem test for complete -would consider vasopressin inhibitor as an outpatient if sodium remains low 2. Seizure disorder, chronic appearing to be well controlled -continue home dose of lamotragine 150 mg po bid DVT ppx: heparin sc Code Status: Full code as discussed with patient's mother Annetta who is his guardian and POA Quality VTE Deep Vein Thrombosis/Pulmonary Embolism Present on Admission: No
[2021-04-15 17:44] LABS: BUN Creatinine Ratio 20.9 (6-22); Blood Urea Nitrogen 9 mg/dL (9-20); Calcium 8.4 mg/dL (8.4-10.2); Carbon Dioxide 24 mmol/L (22-32); Chloride 91 mmol/L (98-107); Estimated Glomerular Filt Rate > 60.0 mL/min (>60); Glucose 94 mg/dL (70-100); HEMOLYSIS < 15 (0-50); Potassium 3.9 mmol/L (3.4-5.1); Sodium 120 mmol/L (137-145)
[2021-04-15 18:53] LABS: Thyroid Stimulating Hormone 1.29 uIU/mL (0.47-4.68)
[2021-04-15] MEDS: SODIUM CHLORIDE 0.9% FLUSH 10 ML IV (20:25)
[2021-04-16] VITALS (7 sets, daily range): BP systolic 108–117; BP diastolic 67–84; PULSE 78–92; RESP 16–18; TEMP 36.1–36.9; O2SAT 93–100
[2021-04-16] MEDS: LACTATED RINGERS 1,000 ML 125 ML IV ×2 (00:04→08:07)
[2021-04-16 06:00] LABS: BUN Creatinine Ratio 17.6 (6-22); Blood Urea Nitrogen 6 mg/dL (9-20); Calcium 8.2 mg/dL (8.4-10.2); Carbon Dioxide 24 mmol/L (22-32); Chloride 88 mmol/L (98-107); Estimated Glomerular Filt Rate > 60.0 mL/min (>60); Glucose 85 mg/dL (70-100)
[2021-04-16 06:28] LABS: HEMOLYSIS 19 (0-50)
[2021-04-16 06:30] LABS: Sodium 118 mmol/L (137-145)
[2021-04-16 06:31] LABS: Cortisol Basline for Stim. 6.18 ug/dL
[2021-04-16] MEDS: COSYNTROPIN 0.25 MG VIAL IV (08:12)
[2021-04-16] MEDS: HEPARIN 5,000 UNIT/ML VIAL 5000 UNIT SUBCUT ×2 (08:12→19:56)
[2021-04-16] MEDS: SODIUM CHLORIDE 1,000 MG TABLET 1000 MG PO ×3 (08:13→20:13)
--- NOTE | 2021-04-16 08:28 | PC.NURSE ---
Addendum entered by Bhavya Vo R.N. 04/16/21 14:42: IVF stopped before lunch, Lasix given per DEC, recheck labs @ 1730. Mother ambulating with Pt. NO c/o paint this shift. Good spirits this shift. Original Note: Am shift Pt is smilling and laughing at start of shift, cortisyn given @ 0808. Labs drawn at 30 and 60 minutes post. RA, denies pain, and VSS. SBA to BR and LR @ 125. PICC line with good blood return
[2021-04-16] MEDS: lamoTRIgine 100 MG TABLET 200 MG PO ×2 (10:00→20:12)
[2021-04-16 10:18] LABS: Cortisol 30 MIN Post Stim. 29.8 ug/dL
[2021-04-16 10:18] LABS: Cortisol 60 MIN Post Stim. 34.4 ug/dL
--- NOTE | 2021-04-16 12:20 | PM.PN.1 ---
Subjective Subjective Interval history: The patient is a 46-year-old male admitted to the hospital for nausea vomiting and severe hyponatremia. Today he reports he was able to tolerate his meal without difficulty. The patient has no confusion or symptoms from his low sodium. Exam Vital Signs (past 8 hours): - 04/16/21 07:00 04/16/21 09:06 Temperature 97.3 F L Pulse Rate 92 H Respiratory Rate 18 Blood Pressure 108/79 Pulse Oximetry 99 98 Oxygen Delivery Method Room Air Oxygen Flow Rate 0 Narrative Exam Narrative: Pleasant gentleman resting in bed in no obvious distress [place]UT Other: Normocephalic atraumatic, extraocular muscles are intact, oropharynx reveals moist mucous membranes Resp Other: Lungs: Clear to auscultation Cardio Other: Cardiac exam: Regular rate and rhythm normal S1-S2 GI Other: Abdomen soft nontender nondistended Extrem Other: No edema Objective Labs Result Diagrams: 04/15/21 04:55 04/16/21 05:30 Labs: Laboratory Results - last 24 hr 04/15/21 04/15/21 04/15/21 14:25 17:20 17:20 Sodium 119 L* 120 L Potassium 3.5 3.9 Chloride 89 L 91 L Carbon Dioxide 25 24 BUN 7 L 9 Creatinine 0.48 L 0.43 L Estimated GFR > 60.0 > 60.0 BUN/Creatinine Ratio 14.6 20.9 Glucose 133 H 94 Calcium 8.4 8.4 TSH 1.29 Cortisol Response 04/16/21 04/16/21 05:30 05:30 Sodium 118 L* Potassium 4.0 Chloride 88 L Carbon Dioxide 24 BUN 6 L Creatinine 0.34 L Estimated GFR > 60.0 BUN/Creatinine Ratio 17.6 Glucose 85 Calcium 8.2 L TSH Cortisol Response [facility] Medical History Agenesis of corpus callosum Surgical History History of deviated nasal septum Social History household members: family Smoking Status: Never smoker alcohol intake: never Assessment & Plan Assessment & Plan narrative: Hyponatremia -likely related to SIADH -despite IV hydration with hypertonic saline in addition to normal saline and lactated Ringer's the patient's sodium continues to be low at 118 -TSH is normal at 1.29 -Cortrosyn stimulation test is normal, baseline cortisol of 6, 30 minutes cortisol level 29.8, 60 minutes 34.4 -will continue fluid restriction -will increase salt tablets to 1000 mg 3 times daily -will start Lasix 20 mg daily -will monitor electrolytes closely -if the patient's sodium continues to remain low despite a trial of salt tabs and Lasix would consider vasopressin antagonist, discussed with pharmacy 2. Seizure disorder -continue Lamictal, doubt contributing to hyponatremia. Patient previously switch from carbonated Maze a Pean to Lamictal for prior hyponatremia DVT prophylaxis, subcu heparin Code status, full code Mother Annetta, is his surrogate decision maker Quality VTE Deep Vein Thrombosis/Pulmonary Embolism Present on Admission: No
[2021-04-16] MEDS: FUROSEMIDE 20 MG TABLET PO (14:11)
--- NOTE | 2021-04-16 14:32 | CM.DPC ---
DCP: continued: case discussed in Team Rounds with Dr. Nichols and Pharmacist Luis discussing need for a specific non-formulary medications and options for same. DCP: does remains home with family. Pt's mother Annetta remains at bedside for pt's support and advocacy.
[2021-04-16 17:54] LABS: BUN Creatinine Ratio 27.5 (6-22); Blood Urea Nitrogen 11 mg/dL (9-20); Calcium 8.7 mg/dL (8.4-10.2); Carbon Dioxide 24 mmol/L (22-32); Chloride 86 mmol/L (98-107); Estimated Glomerular Filt Rate > 60.0 mL/min (>60); Glucose 117 mg/dL (70-100); HEMOLYSIS < 15 (0-50); Potassium 3.6 mmol/L (3.4-5.1)
[2021-04-16 18:00] LABS: Sodium 115 mmol/L (137-145)
[2021-04-16] MEDS: FUROSEMIDE 40 MG/4 ML VIAL 20 MG IV (19:56)
[2021-04-16] MEDS: SODIUM CHLORIDE 0.9% FLUSH 10 ML IV (19:57)
[2021-04-17] VITALS (10 sets, daily range): BP systolic 110–135; BP diastolic 60–96; PULSE 75–85; RESP 16; TEMP 36.6–36.9; O2SAT 93–100
[2021-04-17 06:38] LABS: Blood Urea Nitrogen 11 mg/dL (9-20); Calcium 8.8 mg/dL (8.4-10.2); Carbon Dioxide 25 mmol/L (22-32); Chloride 87 mmol/L (98-107); Estimated Glomerular Filt Rate > 60.0 mL/min (>60); Glucose 94 mg/dL (70-100); HEMOLYSIS < 15 (0-50); Potassium 3.7 mmol/L (3.4-5.1)
[2021-04-17 06:41] LABS: Sodium 118 mmol/L (137-145)
[2021-04-17] MEDS: lamoTRIgine 100 MG TABLET 200 MG PO ×2 (10:12→20:25)
[2021-04-17] MEDS: FUROSEMIDE 20 MG TABLET PO (10:12)
[2021-04-17] MEDS: SODIUM CHLORIDE 1,000 MG TABLET 1000 MG PO ×3 (10:12→20:25)
[2021-04-17] MEDS: HEPARIN 5,000 UNIT/ML VIAL 5000 UNIT SUBCUT ×2 (10:13→20:25)
[2021-04-17 14:30] LABS: Blood Urea Nitrogen 11 mg/dL (9-20); Calcium 8.7 mg/dL (8.4-10.2); Carbon Dioxide 25 mmol/L (22-32); Chloride 84 mmol/L (98-107); Estimated Glomerular Filt Rate > 60.0 mL/min (>60); Glucose 130 mg/dL (70-100); HEMOLYSIS < 15 (0-50); Potassium 3.5 mmol/L (3.4-5.1)
[2021-04-17 14:36] LABS: Sodium 117 mmol/L (137-145)
[2021-04-17 14:55] LABS: WBC Urine None Seen (0-5/HPF)
[2021-04-17 15:14] LABS: Appearance Urine UA CLEAR; Bilirubin Urine UA NEGATIVE (NEGATIVE); Color Urine UA YELLOW; Glucose Urine UA NEGATIVE (Negative); Ketones Urine UA NEGATIVE (NEGATIVE); Leukocyte Esterase Urine UA NEGATIVE (NEGATIVE); Nitrite Urine UA NEGATIVE (Negative); Occult Blood Urine UA 1+ (Negative); Protein Urine UA NEGATIVE (Negative); Urobilinogen Urine UA 0.2 E.U./dL (0.2); pH Urine UA 7.5 (4.5-8.0)
--- NOTE | 2021-04-17 15:41 | PM.PN.1 ---
Subjective Subjective Date Patient Seen: 04/17/21 Time Patient Seen: 15:41 Interval history: The patient is a 46-year-old male admitted to the hospital for nausea vomiting and severe hyponatremia. Today he reports he was able to tolerate his meal without difficulty. The patient has no confusion or symptoms from his low sodium. However, his sodium remains between 117 and 118. Currently awaiting repeat urine results to re-assess if he is hypovolemic or not as initial labs are consistent with hypovolemia. Exam Vital Signs (past 8 hours): - 04/17/21 08:31 04/17/21 09:00 04/17/21 09:11 Temperature 97.8 F Pulse Rate 75 Blood Pressure 135/96 H Pulse Oximetry 93 94 93 04/17/21 12:02 04/17/21 15:32 Temperature Pulse Rate Blood Pressure Pulse Oximetry 93 93 Oxygen Delivery Method Room Air Oxygen Flow Rate 0 Narrative Exam Narrative: Gen: no acute distress HEENT: moist mucous membranes Resp:clear bilaterally CV: regular rate and rhythm, no murmur or rubs Abd: soft, non-tender,normal bowel sounds Skin: no rashes Neuro: Delayed, alert and oriented X2. Psyche: pleasant Objective Labs Result Diagrams: 04/15/21 04:55 04/17/21 13:50 Labs: Laboratory Results - last 24 hr 04/13/21 04/16/21 04/17/21 16:17 17:30 06:10 Sodium 115 L* 118 L* Potassium 3.6 3.7 Chloride 86 L 87 L Carbon Dioxide 24 25 BUN 11 11 Creatinine 0.40 L 0.44 L Estimated GFR > 60.0 > 60.0 BUN/Creatinine Ratio 27.5 H 25.0 H Glucose 117 H 94 Calcium 8.7 8.8 Urine Color Urine Appearance Urine pH Ur Specific [place] Urine Protein Urine Glucose (UA) Urine Ketones Urine Occult Blood Urine Nitrate Urine Bilirubin Urine Urobilinogen Ur Leukocyte Esterase Lamotrigine 7.0 04/17/21 04/17/21 12:28 13:50 Sodium 117 L* Potassium 3.5 Chloride 84 L Carbon Dioxide 25 BUN 11 Creatinine 0.44 L Estimated GFR > 60.0 BUN/Creatinine Ratio 25.0 H Glucose 130 H Calcium 8.7 Urine Color Yellow Urine Appearance Clear Urine pH 7.5 Ur Specific [place] 1.010 Urine Protein Negative Urine Glucose (UA) Negative Urine Ketones Negative Urine Occult Blood 1+ H Urine Nitrate Negative Urine Bilirubin Negative Urine Urobilinogen 0.2 Ur Leukocyte Esterase Negative Lamotrigine [facility] Medical History Agenesis of corpus callosum Surgical History History of deviated nasal septum Social History household members: family Smoking Status: Never smoker alcohol intake: never Assessment & Plan Assessment & Plan narrative: 1. Hyponatremia,acute on chronic, present on admission. -possibly related to SIADH, however admission labs consistent with hypovolemic picture. He had lasix this AM, will repeat urine studies to re-assess. May need to repeat tomorrow as patient received diuretic therapy today. -will continue salt tabs, stop lasix. Consider restarting aggressive IV fluids depending on urine studies. Will need to reassess his electrolyte status with urine studies as he initially received fluids, then fluid restriction, salt tabs and lasix complicating evaluation of his hyponatremia. Initial labs as noted above were consistent with hypovolemia. -patient has prior episodes of hyponatremia, but unknown baseline. -depending on repeat studies, given inability to control this patient's serum sodium may need transfer for nephrology consultation. Pharmacy further does not have access to a vaptan which would be the next step for SIADH. -No UA performed previously, now with normal specific gravity, electrolytes currently pending along with urine osm. 2. Seizure disorder -continue Lamictal, doubt contributing to hyponatremia. Patient previously switch from Carbamezapine to Lamictal for prior hyponatremia DVT prophylaxis, subcu heparin Code status, full code Mother Annetta, is his surrogate decision maker Quality VTE Deep Vein Thrombosis/Pulmonary Embolism Present on Admission: No
[2021-04-17 15:46] LABS: Amorphous Sediment Urine 1+; RBC Urine 0-1/HPF (0-5/HPF)
[2021-04-17 15:47] LABS: Bacteria Urine Occasional (0-1); Culture Indicated Urine Cult Not Indicated
[2021-04-17 16:05] LABS: Potassium Urine Random 28.2 mmol/L; Sodium Urine Random 79 mmol/L (30-90)
[2021-04-18] VITALS (8 sets, daily range): BP systolic 105–119; BP diastolic 58–76; PULSE 69–82; RESP 12–18; TEMP 36.2–36.8; O2SAT 96–100
--- NOTE | 2021-04-18 01:57 | PC.NURSE ---
Patient is alert, calling out to staff as they pass room. Oriented except did not know month or day of month; is developmentally delayed. Breath sounds CTA. HRR. Denied nausea. BT hypoactive; abdomen is soft. Denied dysuria, frequency or urgency with urination. Able to move self in bed. Up to bathroom with SBA; FOOD SERVICE ORDER CLERK reports gait is abnormal. Denied pain. Refused SCD's. Fall risk score is high and bed alarm is activated. On fluid restriction.
[2021-04-18 08:56] LABS: BUN Creatinine Ratio 18.4 (6-22); Blood Urea Nitrogen 9 mg/dL (9-20); Calcium 9.2 mg/dL (8.4-10.2); Carbon Dioxide 26 mmol/L (22-32); Chloride 86 mmol/L (98-107); Estimated Glomerular Filt Rate > 60.0 mL/min (>60); Glucose 93 mg/dL (70-100); HEMOLYSIS < 15 (0-50); Potassium 4.5 mmol/L (3.4-5.1)
[2021-04-18 09:09] LABS: Sodium 119 mmol/L (137-145)
[2021-04-18] MEDS: SODIUM CHLORIDE 0.9% FLUSH 10 ML IV ×3 (10:00→20:48)
[2021-04-18] MEDS: HEPARIN 5,000 UNIT/ML VIAL 5000 UNIT SUBCUT ×2 (10:00→20:48)
[2021-04-18] MEDS: lamoTRIgine 100 MG TABLET 200 MG PO ×2 (10:00→20:48)
[2021-04-18] MEDS: SODIUM CHLORIDE 1,000 MG TABLET 1000 MG PO (10:23)
[2021-04-18 10:33] LABS: Chloride, Urine 55 mmol/L (Not Estab.)
[2021-04-18 12:12] LABS: Sodium Urine Random 131 mmol/L (30-90)
--- NOTE | 2021-04-18 13:16 | P.PN_ITS ---
Subjective Subjective Date Patient Seen: 04/18/21 Time Patient Seen: 13:16 Interval history: This is a 46 year old male admitted with severe hyponatremia, though he remains asymptomatic. Repeated urine Na today which was markedly elevated after cessation of lasix. Discussed with Neurology over the phone from [facility] whom recommended hypertonic saline until sodium is in the upper 120s, then starting salt tabs 2000 mg TID. If unable to keep Na up he may need tolvaptan, but not currently recommended. Exam Vital Signs (past 8 hours): - 04/18/21 07:00 04/18/21 08:00 04/18/21 09:44 Temperature 97.6 F Pulse Rate 80 81 Respiratory Rate 17 Blood Pressure 119/62 Pulse Oximetry 99 96 100 04/18/21 12:00 Temperature 97.2 F L Pulse Rate 82 Respiratory Rate 18 Blood Pressure 112/68 Pulse Oximetry 99 Oxygen Delivery Method Room Air Oxygen Flow Rate 0 Narrative Exam Narrative: Gen: no acute distress HEENT: moist mucous membranes Resp:clear bilaterally CV: regular rate and rhythm, no murmur or rubs Abd: soft, non-tender,normal bowel sounds Skin: no rashes Neuro: Delayed, alert and oriented X2. Psyche: pleasant Objective Labs Result Diagrams: 04/15/21 04:55 04/18/21 08:25 Labs: Laboratory Results - last 24 hr 04/13/21 04/17/21 04/17/21 16:17 06:10 12:28 Sodium 118 L* Potassium 3.7 Chloride 87 L Carbon Dioxide 25 BUN 11 Creatinine 0.44 L Estimated GFR > 60.0 BUN/Creatinine Ratio 25.0 H Glucose 94 Calcium 8.8 Urine Color Urine Appearance Urine pH Ur Specific [place] Urine Protein Urine Glucose (UA) Urine Ketones Urine Occult Blood Urine Nitrate Urine Bilirubin Urine Urobilinogen Ur Leukocyte Esterase Urine RBC Urine WBC Amorphous Sediment Urine Bacteria Ur Culture Indicated? Ur Random Sodium 79 Ur Random Potassium 28.2 Urine Chloride Lamotrigine 7.0 04/17/21 04/17/21 04/17/21 12:28 12:28 13:50 Sodium 117 L* Potassium 3.5 Chloride 84 L Carbon Dioxide 25 BUN 11 Creatinine 0.44 L Estimated GFR > 60.0 BUN/Creatinine Ratio 25.0 H Glucose 130 H Calcium 8.7 Urine Color Yellow Urine Appearance Clear Urine pH 7.5 Ur Specific [place] 1.010 Urine Protein Negative Urine Glucose (UA) Negative Urine Ketones Negative Urine Occult Blood 1+ H Urine Nitrate Negative Urine Bilirubin Negative Urine Urobilinogen 0.2 Ur Leukocyte Esterase Negative Urine RBC 0-1/hpf Urine WBC None seen Amorphous Sediment 1+ Urine Bacteria Occasional (0-1) Ur Culture Indicated? Cult not indicated Ur Random Sodium Ur Random Potassium Urine Chloride 55 Lamotrigine 04/18/21 04/18/21 08:25 11:44 Sodium 119 L* Potassium 4.5 Chloride 86 L Carbon Dioxide 26 BUN 9 Creatinine 0.49 L Estimated GFR > 60.0 BUN/Creatinine Ratio 18.4 Glucose 93 Calcium 9.2 Urine Color Urine Appearance Urine pH Ur Specific [place] Urine Protein Urine Glucose (UA) Urine Ketones Urine Occult Blood Urine Nitrate Urine Bilirubin Urine Urobilinogen Ur Leukocyte Esterase Urine RBC Urine WBC Amorphous Sediment Urine Bacteria Ur Culture Indicated? Ur Random Sodium 131 H Ur Random Potassium Urine Chloride Lamotrigine [facility] Medical History Agenesis of corpus callosum Surgical History History of deviated nasal septum Social History household members: family Smoking Status: Never smoker alcohol intake: never Assessment & Plan Assessment & Plan narrative: 1. Hyponatremia,acute on chronic, present on admission. 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 Patient was initially given fluids and hypertonic saline which helped initially then his sodium returned to 117-119 range. Lasix, salt tabs were ineffective. SIADH now most likely the cause of his continued low Na with high urine Na, euvolemia although urine osm is still pending. Discussed with neprhology at [facility] today, recommended restarting hypertonic saline until Na is in the upper 120s at 20 cc per hour. Then can switch to 2000 mg salt tabs TID to make sure he remains at a safer level. If her returns reconsult nephrology and consider transfer for tolvaptan therapy, not available at this pharmacy. 2. Seizure disorder -continue Lamictal, doubt contributing to hyponatremia though it could be. Patient previously switch from Carbamezapine to Lamictal for prior hyponatremia DVT prophylaxis, subcu heparin Code status, full code Mother Annetta, is his surrogate decision maker Quality VTE Deep Vein Thrombosis/Pulmonary Embolism Present on Admission: No
[2021-04-18] MEDS: SODIUM CHLORIDE 3 % 500 ML 20 ML IV (13:21)
[2021-04-18 16:36] LABS: BUN Creatinine Ratio 23.2 (6-22); Blood Urea Nitrogen 13 mg/dL (9-20); Calcium 8.9 mg/dL (8.4-10.2); Carbon Dioxide 25 mmol/L (22-32); Chloride 88 mmol/L (98-107); Estimated Glomerular Filt Rate > 60.0 mL/min (>60); Glucose 104 mg/dL (70-100); HEMOLYSIS < 15 (0-50); Potassium 4.3 mmol/L (3.4-5.1)
[2021-04-18 16:43] LABS: Osmolality Urine 464 mOsmol/kg (.)
[2021-04-18 16:44] LABS: Sodium 119 mmol/L (137-145)
[2021-04-18 21:17] LABS: BUN Creatinine Ratio 28.3 (6-22); Blood Urea Nitrogen 15 mg/dL (9-20); Calcium 8.9 mg/dL (8.4-10.2); Carbon Dioxide 26 mmol/L (22-32); Chloride 88 mmol/L (98-107); Estimated Glomerular Filt Rate > 60.0 mL/min (>60); Glucose 91 mg/dL (70-100); HEMOLYSIS < 15 (0-50); Potassium 4.1 mmol/L (3.4-5.1); Sodium 121 mmol/L (137-145)
[2021-04-19] MEDS: SODIUM CHLORIDE 0.9% FLUSH 10 ML IV ×4 (01:03→21:00)
[2021-04-19 01:30] LABS: BUN Creatinine Ratio 23.5 (6-22); Blood Urea Nitrogen 12 mg/dL (9-20); Calcium 8.8 mg/dL (8.4-10.2); Carbon Dioxide 26 mmol/L (22-32); Chloride 88 mmol/L (98-107); Estimated Glomerular Filt Rate > 60.0 mL/min (>60); Glucose 92 mg/dL (70-100); HEMOLYSIS < 15 (0-50); Potassium 4.2 mmol/L (3.4-5.1)
[2021-04-19 01:33] LABS: Sodium 119 mmol/L (137-145)
--- NOTE | 2021-04-19 01:43 | PC.NURSE ---
Patient is alert and animated; oriented except did not know month, day of month, day of week or situation (stated he is in the hospital because of a walking problem). Breath sounds CTA with RA sat of 99%. HRR. Denied nausea. BT hypoactive and abdomen is soft. Denied dysuria, frequency or urgency with urination. Able to move self in bed and is up to bathroom with SBA. Denied pain. Refuses to wear SCD's. Fall risk score is high and bed alarm is activated. Continues on fluid restriction.
[2021-04-19 05:28] LABS: Blood Urea Nitrogen 9 mg/dL (9-20); Calcium 8.6 mg/dL (8.4-10.2); Carbon Dioxide 25 mmol/L (22-32); Chloride 89 mmol/L (98-107); Estimated Glomerular Filt Rate > 60.0 mL/min (>60); Glucose 87 mg/dL (70-100); HEMOLYSIS < 15 (0-50); Potassium 3.8 mmol/L (3.4-5.1); Sodium 120 mmol/L (137-145)
[2021-04-19 07:00] VITALS: O2SAT 99
[2021-04-19 08:30] VITALS: BP 112/73; PULSE 71; RESP 16; TEMP 36.1; O2SAT 99
--- NOTE | 2021-04-19 09:29 | PC.NURSE ---
125mL water was left over from his 200mL of Direct Care Professional.
[2021-04-19] MEDS: HEPARIN 5,000 UNIT/ML VIAL 5000 UNIT SUBCUT ×2 (09:31→21:00)
[2021-04-19] MEDS: lamoTRIgine 100 MG TABLET 200 MG PO ×2 (09:31→21:00)
--- NOTE | 2021-04-19 11:17 | CM.DPC ---
DCP Cont: Per MD, pt currently requiring medical care and stabilization and not ready for d/c yet today and anticipates that once off medication recommended by consulted Rn Testing he may be able to d/c home tomorrow vs hospital transfer if his levels decline. Pt's supportive mother has remained bedside. Pt has been cooperative with care and oriented but not to date. Plan: SW to follow closely tomorrow towards determining if pt medically stable to d/c home with supportive mother vs possible hospital transfer for higher level of care needs. MICHELLE Gill
[2021-04-19] MEDS: SODIUM CHLORIDE 3 % 500 ML 20 ML IV (12:41)
--- NOTE | 2021-04-19 13:50 | P.PN_ITS ---
Subjective Subjective Date Patient Seen: 04/19/21 Time Patient Seen: 10:30 Interval history: This is a 46 year old male admitted with severe hyponatremia, though he remains asymptomatic. Consistent with SIADH. Back on 3% after discussion with nephrology, Na now up to 120. Have increased the rate to 25 cc per hour. Continue q4 BMPs. Once Na is about 125 switch to 2000 mg TID salt tabs. Exam Vital Signs (past 8 hours): - 04/19/21 07:00 04/19/21 08:30 Temperature 96.9 F L Pulse Rate 71 Respiratory Rate 16 Blood Pressure 112/73 Pulse Oximetry 99 99 Oxygen Delivery Method Room Air Oxygen Flow Rate 0 Narrative Exam Narrative: Gen: no acute distress HEENT: moist mucous membranes Resp:clear bilaterally CV: regular rate and rhythm, no murmur or rubs Abd: soft, non-tender,normal bowel sounds Skin: no rashes Neuro: Delayed, alert and oriented X2. Psyche: pleasant Objective Labs Result Diagrams: 04/15/21 04:55 04/19/21 05:02 Labs: Laboratory Results - last 24 hr 04/17/21 04/18/21 04/18/21 12:28 16:20 21:00 Sodium 119 L* 121 L Potassium 4.3 4.1 Chloride 88 L 88 L Carbon Dioxide 25 26 BUN 13 15 Creatinine 0.56 L 0.53 L Estimated GFR > 60.0 > 60.0 BUN/Creatinine Ratio 23.2 H 28.3 H Glucose 104 H 91 Calcium 8.9 8.9 Urine Osmolality 464 04/19/21 04/19/21 01:03 05:02 Sodium 119 L* 120 L Potassium 4.2 3.8 Chloride 88 L 89 L Carbon Dioxide 26 25 BUN 12 9 Creatinine 0.51 L 0.45 L Estimated GFR > 60.0 > 60.0 BUN/Creatinine Ratio 23.5 H 20.0 Glucose 92 87 Calcium 8.8 8.6 Urine Osmolality FORMERLY [facility], 1928–1983 Medical History Agenesis of corpus callosum Surgical History History of deviated nasal septum Social History household members: family Smoking Status: Never smoker alcohol intake: never Assessment & Plan Assessment & Plan narrative: 1. Hyponatremia,acute on chronic, present on admission. 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 Patient was initially given fluids and hypertonic saline which helped initially then his sodium returned to 117-119 range. Lasix, salt tabs were ineffective. SIADH now most likely the cause of his continued low Na with high urine Na, euvolemia although urine osm is still pending. Discussed with neprhology at [facility], recommended restarting hypertonic saline until Na is in the upper 120s at 20 cc per hour. Then can switch to 2000 mg salt tabs TID to make sure he remains at a safer level. If he returns to <120 reconsult nephrology and consider transfer for tolvaptan therapy, not available at this pharmacy. -have increased rate to 25 cc per hour today. 2. Seizure disorder -continue Lamictal, doubt contributing to hyponatremia though it could be. Patient previously switch from Carbamezapine to Lamictal for prior hyponatremia DVT prophylaxis, subcu heparin Code status, full code Mother Annetta, is his surrogate decision maker Quality VTE Deep Vein Thrombosis/Pulmonary Embolism Present on Admission: No
--- NOTE | 2021-04-19 14:47 | PC.NURSE ---
A&Ox2, some confusion. VSS. Denies pain. IV patent, 3% saline runnin gat 25mls/hr. Mother at bedside. Call light within reach, bed low.
[2021-04-19 15:00] VITALS: O2SAT 99
[2021-04-19 16:00] VITALS: BP 129/56; PULSE 75; RESP 16; TEMP 36.3; O2SAT 99
[2021-04-19 16:44] LABS: Osmolality Urine 510 mOsmol/kg (.)
[2021-04-19 17:53] LABS: BUN Creatinine Ratio 34.2 (6-22); Blood Urea Nitrogen 13 mg/dL (9-20); Calcium 8.5 mg/dL (8.4-10.2); Carbon Dioxide 22 mmol/L (22-32); Chloride 89 mmol/L (98-107); Estimated Glomerular Filt Rate > 60.0 mL/min (>60); Glucose 98 mg/dL (70-100); Potassium 4.5 mmol/L (3.4-5.1)
[2021-04-19 17:57] LABS: HEMOLYSIS 59 (0-50)
[2021-04-19 17:58] LABS: Sodium 119 mmol/L (137-145)
[2021-04-19 19:55] LABS: Blood Urea Nitrogen 13 mg/dL (9-20); Calcium 8.7 mg/dL (8.4-10.2); Carbon Dioxide 25 mmol/L (22-32); Chloride 89 mmol/L (98-107); Estimated Glomerular Filt Rate > 60.0 mL/min (>60); Glucose 102 mg/dL (70-100); HEMOLYSIS 16 (0-50); Potassium 4.1 mmol/L (3.4-5.1); Sodium 120 mmol/L (137-145)
--- NOTE | 2021-04-19 21:51 | PC.NURSE ---
Patient to get BMP drawn every 4 hours by RN through midline. Was given 3 bags at shift change, labeled for 1337, 1737, and 2137. Discussed with day shift RN who said she did not get the bags until 1500, so did not draw [address]. [address] Graff who suggested this RN draw BMP at 1530 and move the next BMPs to 1930 and 2330. The 1530 lab was not resulted until 1730, and sodium was at 119. Increased rate of 3% NS to 30ml/hr per Dr. Graff. 1930 lab drawn and sodium was 120. Called lab and had them update timing of labs so it matches with when we will draw. Discussed with BE Yu and will keep fluids at 30ml/hr but consider transfer to another facility due to unstable/inconsistent sodium levels despite increasing fluid rate. Called mom, Annetta, and informed her of this plan and she was appreciative.
[2021-04-19 23:40] VITALS: O2SAT 99
[2021-04-20] VITALS: BP 120/80; PULSE 76; RESP 16; TEMP 36.7; O2SAT 99
[2021-04-20 00:07] LABS: BUN Creatinine Ratio 27.7 (6-22); Blood Urea Nitrogen 13 mg/dL (9-20); Calcium 8.4 mg/dL (8.4-10.2); Carbon Dioxide 24 mmol/L (22-32); Chloride 90 mmol/L (98-107); Estimated Glomerular Filt Rate > 60.0 mL/min (>60); Glucose 91 mg/dL (70-100); HEMOLYSIS < 15 (0-50); Potassium 4.1 mmol/L (3.4-5.1); Sodium 121 mmol/L (137-145)
[2021-04-20 05:50] LABS: BUN Creatinine Ratio 22.5 (6-22); Blood Urea Nitrogen 9 mg/dL (9-20); Calcium 8.6 mg/dL (8.4-10.2); Carbon Dioxide 24 mmol/L (22-32); Chloride 91 mmol/L (98-107); Estimated Glomerular Filt Rate > 60.0 mL/min (>60); Glucose 90 mg/dL (70-100); HEMOLYSIS < 15 (0-50); Potassium 3.6 mmol/L (3.4-5.1); Sodium 122 mmol/L (137-145)
[2021-04-20] MEDS: SODIUM CHLORIDE 3 % 500 ML 30 ML IV (06:13)
[2021-04-20 08:00] VITALS: BP 109/74; PULSE 77; RESP 18; TEMP 36.1; O2SAT 97
[2021-04-20] MEDS: lamoTRIgine 100 MG TABLET 200 MG PO ×2 (09:41→20:23)
[2021-04-20] MEDS: HEPARIN 5,000 UNIT/ML VIAL 5000 UNIT SUBCUT ×2 (09:41→20:23)
[2021-04-20] MEDS: SODIUM CHLORIDE 0.9% FLUSH 10 ML IV ×3 (09:42→23:44)
[2021-04-20 13:04] LABS: BUN Creatinine Ratio 23.1 (6-22); Blood Urea Nitrogen 9 mg/dL (9-20); Calcium 8.7 mg/dL (8.4-10.2); Carbon Dioxide 24 mmol/L (22-32); Chloride 97 mmol/L (98-107); Estimated Glomerular Filt Rate > 60.0 mL/min (>60); Glucose 80 mg/dL (70-100); HEMOLYSIS < 15 (0-50); Potassium 4.2 mmol/L (3.4-5.1); Sodium 127 mmol/L (137-145)
--- NOTE | 2021-04-20 14:14 | PC.NURSE ---
Patients ns infusion has stopped per , He has transitioned to oral salt tabs as his sodium level has increased. He is developmentally delayed but understands things. Mother is in room and very attentive to care. He denies pain. Appetite is good and double lumen picc to l.upper arm patent and flushing well, also working well for blood draws.
[2021-04-20] MEDS: SODIUM CHLORIDE 1,000 MG TABLET 2000 MG PO ×2 (14:24→20:23)
[2021-04-20 15:00] VITALS: O2SAT 97
[2021-04-20 16:17] VITALS: BP 132/83; PULSE 88; RESP 18; TEMP 36.5; O2SAT 98
--- NOTE | 2021-04-20 18:06 | P.PN_ITS ---
Subjective Subjective Date Patient Seen: 04/20/21 Time Patient Seen: 18:06 Interval history: This is a 46 year old male admitted with severe hyponatremia, though he remains asymptomatic. Consistent with SIADH. Back on 3% after discussion with nephrology, Na now up to 127 finally. Have stopped 3% and now started on 2g salt tabs TID, will continue to monitor sodium. Fluid restriction decreased to 1000 mL daily. Exam Vital Signs (past 8 hours): - 04/20/21 15:00 04/20/21 16:17 Temperature 97.7 F Pulse Rate 88 Respiratory Rate 18 Blood Pressure 132/83 Pulse Oximetry 97 98 Oxygen Delivery Method Room Air Oxygen Flow Rate 0 Narrative Exam Narrative: Gen: no acute distress HEENT: moist mucous membranes Resp:clear bilaterally CV: regular rate and rhythm, no murmur or rubs Abd: soft, non-tender,normal bowel sounds Skin: no rashes Neuro: Delayed, alert and oriented X2. Psyche: pleasant Objective Labs Result Diagrams: 04/15/21 04:55 04/20/21 12:46 Labs: Laboratory Results - last 24 hr 04/19/21 04/19/21 04/20/21 19:35 23:40 05:30 Sodium 120 L 121 L 122 L Potassium 4.1 4.1 3.6 Chloride 89 L 90 L 91 L Carbon Dioxide 25 24 24 BUN 13 13 9 Creatinine 0.50 L 0.47 L 0.40 L Estimated GFR > 60.0 > 60.0 > 60.0 BUN/Creatinine Ratio 26.0 H 27.7 H 22.5 H Glucose 102 H 91 90 Calcium 8.7 8.4 8.6 04/20/21 12:46 Sodium 127 L Potassium 4.2 Chloride 97 L Carbon Dioxide 24 BUN 9 Creatinine 0.39 L Estimated GFR > 60.0 BUN/Creatinine Ratio 23.1 H Glucose 80 Calcium 8.7 PFSH Medical History Agenesis of corpus callosum Surgical History History of deviated nasal septum Social History household members: family Smoking Status: Never smoker alcohol intake: never Assessment & Plan Assessment & Plan narrative: 1. Hyponatremia,acute on chronic, present on admission. 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 Patient was initially given fluids and hypertonic saline which helped initially then his sodium returned to 117-119 range. Lasix, salt tabs were ineffective. SIADH now most likely the cause of his continued low Na with high urine Na, euvolemia although urine osm is still pending. Discussed with neprhology at [facility], recommended restarting hypertonic saline until Na is in the upper 120s at 20 cc per hour. Then can switch to 2000 mg salt tabs TID to make sure he remains at a safer level. Have now restarted salt tabs as Na improved to 127 on 3% (after increasing rate to ultimately 30 cc per hour). If he returns to <120 reconsult nephrology and consider transfer for tolvaptan therapy, not available at this pharmacy. 2. Seizure disorder -continue Lamictal, doubt contributing to hyponatremia though it could be. Patient previously switch from Carbamezapine to Lamictal for prior hyponatremia DVT prophylaxis, subcu heparin Code status, full code Mother Annetta, is his surrogate decision maker Quality VTE Deep Vein Thrombosis/Pulmonary Embolism Present on Admission: No
[2021-04-20 18:20] LABS: BUN Creatinine Ratio 24.5 (6-22); Blood Urea Nitrogen 12 mg/dL (9-20); Calcium 8.8 mg/dL (8.4-10.2); Carbon Dioxide 25 mmol/L (22-32); Chloride 90 mmol/L (98-107); Estimated Glomerular Filt Rate > 60.0 mL/min (>60); Glucose 139 mg/dL (70-100); HEMOLYSIS < 15 (0-50); Potassium 4.4 mmol/L (3.4-5.1); Sodium 121 mmol/L (137-145)
[2021-04-21] VITALS: BP 129/81; PULSE 77; RESP 16; TEMP 36.4; O2SAT 100
[2021-04-21 00:25] LABS: BUN Creatinine Ratio 27.9 (6-22); Blood Urea Nitrogen 12 mg/dL (9-20); Calcium 8.7 mg/dL (8.4-10.2); Carbon Dioxide 25 mmol/L (22-32); Chloride 89 mmol/L (98-107); Estimated Glomerular Filt Rate > 60.0 mL/min (>60); Glucose 91 mg/dL (70-100); HEMOLYSIS 17 (0-50); Potassium 4.3 mmol/L (3.4-5.1); Sodium 121 mmol/L (137-145)
[2021-04-21] MEDS: SODIUM CHLORIDE 0.9% FLUSH 10 ML IV ×3 (05:07→10:09)
[2021-04-21 06:05] LABS: BUN Creatinine Ratio 23.3 (6-22); Blood Urea Nitrogen 10 mg/dL (9-20); Calcium 9.1 mg/dL (8.4-10.2); Carbon Dioxide 25 mmol/L (22-32); Chloride 88 mmol/L (98-107); Estimated Glomerular Filt Rate > 60.0 mL/min (>60); Glucose 87 mg/dL (70-100); HEMOLYSIS < 15 (0-50); Potassium 3.9 mmol/L (3.4-5.1); Sodium 120 mmol/L (137-145)
[2021-04-21] MEDS: SODIUM CHLORIDE 3 % 500 ML 30 ML IV (06:37)
[2021-04-21 08:14] VITALS: BP 128/81; PULSE 68; RESP 16; TEMP 36.1; O2SAT 100
[2021-04-21] MEDS: lamoTRIgine 100 MG TABLET 200 MG PO (10:08)
[2021-04-21] MEDS: HEPARIN 5,000 UNIT/ML VIAL 5000 UNIT SUBCUT (10:08)
[2021-04-21] MEDS: SODIUM CHLORIDE 1,000 MG TABLET 2000 MG PO (10:08)
--- NOTE | 2021-04-21 11:48 | P.DS_ITS ---
History of Present Illness History of Present Illness Date Patient Seen: 04/21/21 Time Patient Seen: 11:48 Chief complaint: Nausea and vomiting, severe hyponatremia Narrative: Chun Matthews is a 46-year-old male with agenesis of the corpus callosum, remote history of seizure disorder was in his usual state of health as of Saturday of this week. Mother stated that he was gagging and refusing to eat food. On Saturday he did eat some cereal but then repeat views T anything else for the rest of the day. He then started to throw up. She introduce soft foods such as yogurt since putting which did not seem to help. At that point she took him to the [email or web address] where he receives his care and stated that he did have a kidney stone and at that time sodium was 117. He was directed to present himself to the [facility]. The patient had had a history of low sodium due to being on Tegretol in number of years ago for seizures. She states he has not had any seizures since then and is now currently taking lamotrigine. History is provided mostly by the mother as well he is verbal is unable to provide a reliable history due to his developmental delay. His mom states that he does not report any pain. He does have a significant drooling problem which has been lifelong. She denies that the patient has been febrile, she also states that he is continent of urine and stool though he did apparently have an it urinary incontinence episode in the ED however that might have also been caused by the fluids he was getting. There was a complaint of hematuria however this was not mentioned to me during my interview with the patient. In the ED, the patient's vitals were 98.0, blood pressure 117/75, heart rate 74, respiratory rate 17, oxygen saturation 96% on room air any weighs 68.[address] of the chest abdomen and pelvis only indicated a 4 mm stone in the urinary bladder which could explain the hematuria. WBC is unremarkable, admission chemistries included a sodium of 116 now improved to 119 over several hours, potassium 3.5, chloride 82, bicarb 26, BUN 11, creatinine 0.47, glucose 101, TSH within normal limits. Repeat sodium was done and had dropped to 117, so the patient will require 3% hypertonic saline and admission to the ICU. Discharge Providers Provider Date of admission: 04/13/21 19:01 Discharge Date: 04/21/21 Primary care physician: Marycarmen Monge DO Consults: 04/14/21 00:43 Consult to Pastoral Services Routine Comment: pt likes to visit Discharge provider: Kuldip Graff DO Summary Hospital Course Discharge Diagnosis: 1. Severe Hyponatremia,acute on chronic, present on admission. 2. Seizure disorder, chronci 3. Agenesis of the corpus collosum. Hospital Course: This is a 46-year-old male with a past medical history of agenesis of the corpus callosum, seizure disorder, and prior episodes of hyponatremia who was admitted with severe hyponatremia with an initial sodium of 116. His initial presentation was consistent with hypovolemia given low urine sodium, although in retrospect this was probably mixed in the setting of chronic SIADH. He was initially given IV fluids but this actually worsened his sodium and he was changed to hypertonic saline which initially helped however his sodium then returned to below 120. Lasix and salt tabs were ineffective. Urine studies were again repeated which confirmed SIADH with a urine sodium of greater than 100, and a urine Osm which ultimately returned with a value of greater than 500. Initially nephrology was consulted on the phone as there are no nephrologists in [facility], recommended 3% until he reached the mid 120s and then transition to salt tabs to see if he maintains his urine sodium level and a 1000 cc fluid restriction. On 3% normal saline at 30 cc/hour he was able to achieve of sodium of 127, however this dropped within a few hours back down to 120 overnight and he was again started on 3% saline. Nephrology was reconsulted who recommended increasing his salt tablets to 4 times a day, initiating a 700 cc fluid restriction, and starting 20 mg of oral Lasix twice a day. They also recommended discussion with his outpatient neurologist for discussion of his seizure medications possibly needing to be changed and possible brain imaging given the severity of his SIADH. After discussion with the electrician third I went to speak to the patient and his mother, who wanted to leave against medical advice. I discussed the proposed treatment course, but his mother stated that because he was asymptomatic she felt that this was fairly low risk and he would follow up as an outpatient. I again advised the high risk of seizure if his sodium continues to fall, but given the desire to leave a gainst medical advice I sent prescriptions for 2000 mg 4 times daily of salt tablets and 20 mg of Lasix twice a day though I do not know that this will be able to maintain his sodium level in a safe range. I advised that if he becomes confused or seize he seek urgent medical attention. I advised that he follow up [place] with his PCP and neurologist. Would advise expedited nephrology referral as well, though I suspect on repeat labs his sodium will likely be below 120. Should he return to the emergency room here, I would recommend transfer to a center with nephrology consultation and availability of a vaptan for this patient, which is not available from our pharmacy. Time Spent with Patient Time spent: Greater than 30 minutes Exam Vital Signs (past 8 hours): - 04/21/21 08:14 Temperature 97.0 F L Pulse Rate 68 Respiratory Rate 16 Blood Pressure 128/81 Pulse Oximetry 100 Oxygen Delivery Method Room Air Oxygen Flow Rate 0 Narrative Exam Narrative: Gen: no acute distress HEENT: moist mucous membranes Resp:clear bilaterally CV: regular rate and rhythm, no murmur or rubs Abd: soft, non-tender,normal bowel sounds Skin: no rashes Neuro: Delayed, alert and oriented X2. Psyche: pleasant Objective Labs Result Diagrams: 04/15/21 04:55 04/21/21 11:40 Labs: Laboratory Results - last 24 hr 04/20/21 04/20/21 04/21/21 12:46 18:00 00:08 Sodium 127 L 121 L 121 L Potassium 4.2 4.4 4.3 Chloride 97 L 90 L 89 L Carbon Dioxide 24 25 25 BUN 9 12 12 Creatinine 0.39 L 0.49 L 0.43 L Estimated GFR > 60.0 > 60.0 > 60.0 BUN/Creatinine Ratio 23.1 H 24.5 H 27.9 H Glucose 80 139 H 91 Calcium 8.7 8.8 8.7 04/21/21 05:20 Sodium 120 L Potassium 3.9 Chloride 88 L Carbon Dioxide 25 BUN 10 Creatinine 0.43 L Estimated GFR > 60.0 BUN/Creatinine Ratio 23.3 H Glucose 87 Calcium 9.1 [facility] Medical History Agenesis of corpus callosum Surgical History History of deviated nasal septum Social History household members: family Smoking Status: Never smoker alcohol intake: never Discharge Plan Discharge Plan Patient Disposition: Left Against Medical Advice Provider Discharge Comment: Patient admitted with hyponatremia, unable to keep Na above 120, though he was asymptomatic. You decided to leave against medical advice. You should follow up with PCP STAT for nephrology referral. If confusion develops or nausea, vomiting please head to nearest ER. Discharge orders & Medications Prescriptions: New sodium chloride 1,000 mg Tablet,Soluble 2,000 mg PO QID 30 Days Qty: 240 RF: 0 furosemide 20 mg tablet 20 mg PO BID 14 Days Qty: 28 RF: 0 Continued multivitamin [Multiple Vitamins] 1 EACH tablet 1 tab PO QDAY Qty: 0 RF: 0 calcium citrate-vitamin D3 200 MG/125 IU tablet 200 tab PO BID Qty: 0 RF: 0 lamotrigine 200 mg tablet 200 mg PO BID RF: 0 Follow up/Referrals: Marycarmen Monge DO [Primary Care Provider] - Discharge Health Status Multidrug resistant organism: No MDRO Diet/Activity/Treatments Diet: Diet as Tolerated Diet comment: Fluid restriction 700 cc per day. Activity: As tolerated Discharge Data Primary Care Provider: Marycarmen Monge Quality VTE Deep Vein Thrombosis/Pulmonary Embolism Present on Admission: No
[2021-04-21 11:59] LABS: Blood Urea Nitrogen 12 mg/dL (9-20); Calcium 8.9 mg/dL (8.4-10.2); Carbon Dioxide 25 mmol/L (22-32); Chloride 95 mmol/L (98-107); Estimated Glomerular Filt Rate > 60.0 mL/min (>60); Glucose 105 mg/dL (70-100); HEMOLYSIS < 15 (0-50); Potassium 4.4 mmol/L (3.4-5.1); Sodium 125 mmol/L (137-145)
--- NOTE | 2021-04-21 12:07 | PC.NURSE ---
Addendum entered by Priya Barnett R.N. 04/21/21 13:46: Dr. Graff has talked to patient and his mother about care, labs, and recommendations. They have chosen to leave against medical advice. Paperwork filled out and patients mom signed. Original Note: Patient is delayed mentally, but does understand what is going on. His mother stays in the room with him for most of the day. She is helpful and attentive to his needs. Patient takes his medication without any difficulties and has a good appetite. He denies pain or nausea. He will most likely be discharged home today. Blood levels just drawn from Pic[facility] line. He is awaiting lunch, and will be working on his discharge.
[2021-04-24 15:36] LABS: Osmolality Urine 668 mOsmol/kg (.)
== END 2021-04-21 13:50 | disposition left against medical advice (07) | DRG 643 ==
LOC: ED 15:35 → AC 19:16 → ICU 04-14 06:49 → AC 04-18 12:38 → ICU 04-18 15:41
PROVIDERS: Internal Medicine; Nurse Practitioner Family; Admitting Provider Internal Medicine; Emergency Provider Emergency Medicine; PCP Family Medicine; Referring Provider Emergency Medicine; Visit Provider Internal Medicine
DX: E22.2 Syndrome of inappropriate secretion of antidiuretic hormone (principal); Q04.0 Congenital malformations of corpus callosum; G40.909 Epilepsy, unspecified, not intractable, without status epilepticus; Z20.822 Contact with and (suspected) exposure to COVID-19; N20.0 Calculus of kidney; Z53.29 Procedure and treatment not carried out because of patient's decision for other reasons
CPT/HCPCS: 36415; 36569; 36592; 74176; 80048; 80051; 80053; 80175; 81001; 81003; 81015; 82436; 83690; 83735; 83930; 83935; 84133; 84300; 84443; 85025; 87635; 93005; 94760; 96360; 96361; 96372; 99284; 99291; C9803; J0834; J1642; J1644; J1940; J3480

== ENCOUNTER → 2021-06-13 13:45 | Outpatient (CLI) | payer MEDICARE, OTHER, MEDICAID, SELFPAY ==
[2021-04-14 00:17] VITALS: BMI 20.5
[2021-06-13 14:42] LABS: BUN Creatinine Ratio 22.2 (6-22); Blood Urea Nitrogen 10 mg/dL (9-20); Calcium 9.3 mg/dL (8.4-10.2); Carbon Dioxide 28 mmol/L (22-32); Chloride 94 mmol/L (98-107); Estimated Glomerular Filt Rate > 60.0 mL/min (>60); Glucose 89 mg/dL (70-100); HEMOLYSIS < 15 (0-50); Sodium 128 mmol/L (137-145)
[2021-06-13 15:12] LABS: Sodium Urine Random 99 mmol/L (30-90)
[2021-06-14 14:36] LABS: Osmolality Urine 525 mOsmol/kg (.); Osmolality, Serum 264 mOsmol/kg (275-295)
== END ==
PROVIDERS: PCP Family Medicine; Referring Provider Internal Medicine Nephrology; Visit Provider Internal Medicine Nephrology
DX: E87.1 Hypo-osmolality and hyponatremia (principal)
CPT/HCPCS: 36415; 80048; 83930; 83935; 84300

== ENCOUNTER → 2021-06-29 11:49 | Outpatient (CLI) | payer MEDICARE, OTHER, MEDICAID, SELFPAY ==
[2021-04-14 00:17] VITALS: BMI 20.5
[2021-06-29 12:46] LABS: BUN Creatinine Ratio 22.2 (6-22); Blood Urea Nitrogen 12 mg/dL (9-20); Calcium 9.5 mg/dL (8.4-10.2); Carbon Dioxide 31 mmol/L (22-32); Chloride 95 mmol/L (98-107); Estimated Glomerular Filt Rate > 60.0 mL/min (>60); Glucose 87 mg/dL (70-100); HEMOLYSIS < 15 (0-50); Potassium 4.3 mmol/L (3.4-5.1); Sodium 131 mmol/L (137-145)
[2021-06-30 11:15] LABS: Osmolality Urine 550 mOsmol/kg (.)
== END ==
PROVIDERS: PCP Family Medicine; Referring Provider Internal Medicine Nephrology; Visit Provider Internal Medicine Nephrology
DX: E87.1 Hypo-osmolality and hyponatremia (principal)
CPT/HCPCS: 36415; 80048; 83935